=== PATIENT | male | born 1960 | race African-American/Black ===

== ENCOUNTER 2019-04-09 18:16 | Emergency (ER) | payer MEDICAID ==
[~2019-04-09] VITALS: Ht 172.7 cm; Wt 72.7 kg
[~2019-04-09 18:16] MED LIST: CEFD300C3 PO; IBUP-24 PO; LORA10TA7 PO
[2019-04-09 19:34] LABS: BASOPHILS % (AUTO) 0.6 % (0-1); EOSINOPHILS # (AUTO) 0.2 X10'3 (0-0.9); EOSINOPHILS % (AUTO) 4.1 % (0-6); HEMATOCRIT 29.6 % (42.0-52.0); HEMOGLOBIN 10.3 g/dl (14.0-17.9); LYMPHOCYTES % (AUTO) 25.8 % (21-51); MEAN CORPUSCULAR HEMOGLOBIN 34.2 PG (27.0-31.0); MEAN CORPUSCULAR HGB CONC 34.9 g/dL (33.0-36.5); MEAN PLATELET VOLUME 7.8 FL (7.4-10.4); MONOCYTES # (AUTO) 0.5 X10'3 (0-0.9); MONOCYTES % (AUTO) 12.1 % (2-12); NEUTROPHILS # (AUTO) 2.3 X10'3 (1.8-7.7); NEUTROPHILS % (AUTO) 57.4 % (42-75); PLATELET COUNT 91 X10'3 (140-440); RED BLOOD COUNT 3.02 X10'6 (4.70-6.10); RED CELL DISTRIBUTION WIDTH 15.4 % (11.5-14.5); WHITE BLOOD COUNT 3.9 X10'3 (4.5-11.0)
[2019-04-09 19:53] LABS: ALANINE AMINOTRANSFERASE 41 U/L (12-78); ALBUMIN 2.3 G/DL (3.4-5.0); ALBUMIN/GLOBULIN RATIO 0.6 (1.1-1.5); ALKALINE PHOSPHATASE 99 IU/L (46-116); ANION GAP 4 (8-16); ASPARTATE AMINO TRANSFERASE 44 U/L (10-37); BILIRUBIN,TOTAL 2.1 MG/DL (0.1-1.0); BLOOD UREA NITROGEN 7 MG/DL (7-18); BUN/CREATININE RATIO 12.1 (5.4-32.0); CALCIUM 7.8 MG/DL (8.5-10.1); CHLORIDE 107 MMOL/L (99-107); CREATININE 0.58 MG/DL (0.60-1.10); GLUCOSE 91 MG/DL (70-104); POTASSIUM 3.5 MMOL/L (3.5-5.1); SODIUM 140 MMOL/L (135-145); TOTAL PROTEIN 6.1 G/DL (6.4-8.2); eGFR > 90 ML/MIN
[2019-04-09 19:55] LABS: ETHANOL < 0.010 GM/DL (0.0-0.010)
[2019-04-09] MEDS ORDERED: NO HOME MEDS (20:01)
[2019-04-09] MEDS ORDERED: CHLO25CA10 PO (21:19)
[2019-04-09 21:46] VITALS: BP 132/75
== END 2019-04-09 21:47 | disposition home or self-care (01) ==
LOC: ER 18:21
DX: F10.10 Alcohol abuse, uncomplicated (principal); M54.9 Dorsalgia, unspecified; M54.2 Cervicalgia; R11.0 Nausea; M19.90 Unspecified osteoarthritis, unspecified site; G89.29 Other chronic pain; Z79.899 Other long term (current) drug therapy; Z98.890 Other specified postprocedural states; Y90.9 Presence of alcohol in blood, level not specified
CPT/HCPCS: 80053; 80320; 82140; 85025; 99283

== ENCOUNTER 2019-04-23 11:46 | Inpatient (IN) | payer MEDICAID ==
[~2019-04-23] VITALS: Ht 172.7 cm; Wt 76.4 kg
[~2019-04-23 11:46] MED LIST changes: -CEFD300C3 PO; +CHLO25CA10 PO; -IBUP-24 PO; -LORA10TA7 PO; +NO HOME MEDS
[2019-04-23] MEDS ORDERED: normal saline 1000ML IV soln IVB ONE (13:00)
[2019-04-23 13:48] LABS: URINE AMPHETAMINE SCREEN NEGATIVE (Neg); URINE BARBITUATE SCREEN NEGATIVE (Neg); URINE BENZODIAZEPINES SCREEN NEGATIVE (Neg); URINE CANNABINOID SCREEN NEGATIVE (Neg); URINE COCAINE SCREEN NEGATIVE (Neg); URINE METHADONE SCREEN NEGATIVE (Neg); URINE OPIATE SCREEN NEGATIVE (Neg); URINE PHENCYCLIDINE SCREEN NEGATIVE (Neg)
[2019-04-23 13:55] LABS: ALANINE AMINOTRANSFERASE 34 U/L (12-78); ALBUMIN 2.7 G/DL (3.4-5.0); ALKALINE PHOSPHATASE 101 IU/L (46-116); ANION GAP 5 (8-16); ASPARTATE AMINO TRANSFERASE 47 U/L (10-37); BILIRUBIN,TOTAL 3.7 MG/DL (0.1-1.0); BLOOD UREA NITROGEN 5 MG/DL (7-18); BUN/CREATININE RATIO 7.6 (5.4-32.0); CALCIUM 7.9 MG/DL (8.5-10.1); CHLORIDE 95 MMOL/L (99-107); CREATININE 0.66 MG/DL (0.60-1.10); GLUCOSE 104 MG/DL (70-104); POTASSIUM 3.4 MMOL/L (3.5-5.1); SODIUM 124 MMOL/L (135-145); TOTAL CARBON DIOXIDE 24.2 MMOL/L (24-32); eGFR > 90 ML/MIN
[2019-04-23 13:57] LABS: ALBUMIN/GLOBULIN RATIO 0.6 (1.1-1.5); TOTAL PROTEIN 7.1 G/DL (6.4-8.2)
[2019-04-23 14:05] LABS: ETHANOL < 0.010 GM/DL (0.0-0.010)
[2019-04-23 14:28] LABS: BASOPHILS % (AUTO) 0.9 % (0-1); EOSINOPHILS # (AUTO) 0.1 X10'3 (0-0.9); EOSINOPHILS % (AUTO) 1.6 % (0-6); HEMATOCRIT 31.2 % (42.0-52.0); HEMOGLOBIN 11.1 g/dl (14.0-17.9); LYMPHOCYTES # (AUTO) 1.1 X10'3 (1.1-4.8); MEAN CORPUSCULAR HEMOGLOBIN 34.6 PG (27.0-31.0); MEAN CORPUSCULAR HGB CONC 35.6 g/dL (33.0-36.5); MEAN CORPUSCULAR VOLUME 97.3 FL (78-98); MEAN PLATELET VOLUME 8.8 FL (7.4-10.4); MONOCYTES # (AUTO) 0.8 X10'3 (0-0.9); MONOCYTES % (AUTO) 16.8 % (2-12); NEUTROPHILS # (AUTO) 2.9 X10'3 (1.8-7.7); NEUTROPHILS % (AUTO) 58.7 % (42-75); PLATELET COUNT 82 X10'3 (140-440); RED BLOOD COUNT 3.21 X10'6 (4.70-6.10); RED CELL DISTRIBUTION WIDTH 15.2 % (11.5-14.5)
[2019-04-23] MEDS ORDERED: mag hydrox/Alum hydrox/simeth 30ml oral suspension PO PRN (15:35)
[2019-04-23] MEDS ORDERED: haloperidol 5mg tablet PO PRN (15:35)
[2019-04-23] MEDS ORDERED: haloperidol lactate 5mg/ml inj IM PRN (15:35)
[2019-04-23] MEDS ORDERED: HYDROcodone/acetaminophen 5mg/325mg tablet PO PRN (15:35)
[2019-04-23] MEDS ORDERED: metoclopramide 5 mg/ml inj IV PRN (15:35)
[2019-04-23] MEDS ORDERED: LORazepam 2 mg/ml vial IV PRN (15:35)
[2019-04-23] MEDS ORDERED: ondansetron/PF 4mg/2ml inj IV PRN (15:35)
[2019-04-23] MEDS ORDERED: magnesium hydroxide 30ml (MOM) UD suspension PO PRN (15:35)
[2019-04-23] MEDS ORDERED: HYDROcodone/acetaminophen 10/325mg tab PO PRN (15:35)
[2019-04-23] MEDS ORDERED: thiamine 100mg/ml 2ml inj. IV ONE ×2 (15:35→17:05)
[2019-04-23] MEDS ORDERED: acetaminophen 325mg tablet PO PRN ×2 (15:35)
[2019-04-23] MEDS ORDERED: dextrose 50%-water 50ml dispensing syringe IV PRN (15:35)
[2019-04-23 16:48] VITALS: BP 135/75
[2019-04-23] MEDS ORDERED: IBUP-1984 PO (16:57)
--- NOTE | 2019-04-23 17:21 | NUR ---
Thiamine 1535 not given in ER.
[2019-04-23 17:49] LABS: CLARITY,URINE CLEAR (Clear); COLOR,URINE YELLOW (Yellow); GLUCOSE, URINE NEGATIVE (Neg); KETONES,URINE NEGATIVE (Neg); LEUKOCYTE ESTERASE ,URINE NEGATIVE (Neg); NITRITES, URINE NEGATIVE (Neg); OCCULT BLOOD,URINE NEGATIVE (Neg); PROTEIN,URINE NEGATIVE (Neg); UA COLLECTION TYPE VOIDED; UROBILINOGEN,URINE 0.2 E.U/dL (0.2-1.0)
[2019-04-23 18:00] LABS: OSMOLALITY UA 207 MOSM/K (50-1400)
[2019-04-23 18:07] LABS: SODIUM,URINE RANDOM 72 MEQ/L; TOTAL PROTEIN,URINE RANDOM < 6.0 MG/DL
[2019-04-23 18:14] LABS: UA EOSINOPHILS NO EOS /HPF
[2019-04-23] MEDS ORDERED: CHLO25CA10 PO (18:20)
--- NOTE | 2019-04-23 18:32 | NUR ---
Problems reprioritized. Patient report given, questions answered & plan of care reviewed with Candido OLIVEIRA.
[2019-04-23 19:00] VITALS: BP 120/69
[2019-04-23] MEDS ORDERED: magnesium Cl slow-release 64mg tablet PO PRN (19:00)
[2019-04-23] MEDS ORDERED: magnesium 2GM in 50ml NS 50 ML IV PRN (19:00)
[2019-04-23] MEDS ORDERED: potassium Cl 20 mEq SR tablet PO PRN (19:00)
[2019-04-23] MEDS ORDERED: potassium CL 10mEq/100ml bag 100 ML IV PRN (19:00)
[2019-04-23] MEDS ORDERED: magnesium 4gm in 100ml NS 100 ML IV PRN (19:00)
--- NOTE | 2019-04-23 19:00 | NUR ---
Patient in room ORTHO 4021. I have received report from Tom OLIVEIRA and had the opportunity to ask questions and assume patient care.
[2019-04-23 19:13] LABS: MAGNESIUM 1.7 MG/DL (1.5-2.4)
[2019-04-23] MEDS: potassium Cl 20 mEq SR tablet PO PRN ×2 (19:28→23:55)
[2019-04-23] MEDS ORDERED: temazepam 15mg capsule PO PRN (21:00)
--- NOTE | 2019-04-23 21:17 | NUR ---
Patient's sister, Jane Freedman came in to see her brother and informed staff that she has been trying to keep an eye on her brother 13/10 since sometime in March. She said he has not had any alcohol since 04/02/2019 and that she has been monitoring him. She verbalized concerns about his ability to care for himself; says that he doesn't know how to process : how to dress,bathe and feed self. That he gets food mixed up with other stuff and that he is throwing things away and remodeling her house by destroying things. That he is incontinent of urine and peeing in all the garbage cans. She has set up an appointment for this Thursday ,for him at the [facility] office with an Md. She wants him to get help and feels that he needs to be placed in a facility where he can be cared for. I instructed her that DCP will evaluate the situation and SS has been ordered and hopefully they can make some suggestions and aide her in finding a safe place for her brother. Her number is [phone] but it is a landline. Her 's number is a cell number [phone] Bharathi Freedman.
[2019-04-24 06:00] VITALS: BP 107/64
[2019-04-24 06:10] LABS: BASOPHILS # (AUTO) 0.1 X10'3 (0-0.2); EOSINOPHILS # (AUTO) 0.1 X10'3 (0-0.9); EOSINOPHILS % (AUTO) 1.3 % (0-6); HEMATOCRIT 29.2 % (42.0-52.0); HEMOGLOBIN 10.3 g/dl (14.0-17.9); LYMPHOCYTES # (AUTO) 1.4 X10'3 (1.1-4.8); LYMPHOCYTES % (AUTO) 25.8 % (21-51); MEAN CORPUSCULAR HEMOGLOBIN 34.2 PG (27.0-31.0); MEAN CORPUSCULAR HGB CONC 35.2 g/dL (33.0-36.5); MEAN CORPUSCULAR VOLUME 97.3 FL (78-98); MONOCYTES # (AUTO) 0.7 X10'3 (0-0.9); MONOCYTES % (AUTO) 12.6 % (2-12); NEUTROPHILS # (AUTO) 3.2 X10'3 (1.8-7.7); NEUTROPHILS % (AUTO) 59.3 % (42-75); PLATELET COUNT 73 X10'3 (140-440); RED CELL DISTRIBUTION WIDTH 15.4 % (11.5-14.5); WHITE BLOOD COUNT 5.4 X10'3 (4.5-11.0)
[2019-04-24 06:18] LABS: PARTIAL THROMBOPLASTIN TIME 33 SECONDS (22-32)
[2019-04-24 06:21] LABS: ALANINE AMINOTRANSFERASE 30 U/L (12-78); ALBUMIN 2.4 G/DL (3.4-5.0); ALKALINE PHOSPHATASE 86 IU/L (46-116); ANION GAP 5 (8-16); ASPARTATE AMINO TRANSFERASE 43 U/L (10-37); BILIRUBIN,TOTAL 3.9 MG/DL (0.1-1.0); BLOOD UREA NITROGEN 6 MG/DL (7-18); BUN/CREATININE RATIO 9.4 (5.4-32.0); CALCIUM 8.1 MG/DL (8.5-10.1); CHLORIDE 100 MMOL/L (99-107); CREATININE 0.64 MG/DL (0.60-1.10); GLUCOSE 91 MG/DL (70-104); MAGNESIUM 1.8 MG/DL (1.5-2.4); POTASSIUM 4.2 MMOL/L (3.5-5.1); SODIUM 127 MMOL/L (135-145); TOTAL CARBON DIOXIDE 22.4 MMOL/L (24-32); eGFR > 90 ML/MIN
[2019-04-24 06:22] LABS: ALBUMIN/GLOBULIN RATIO 0.6 (1.1-1.5); TOTAL PROTEIN 6.5 G/DL (6.4-8.2)
[2019-04-24] MEDS: enoxaparin 40mg/0.4ml syringe SQ SCH (08:00)
--- NOTE | 2019-04-24 08:30 | NUR ---
Pt appears confused and mumbling words most of the time. Pt able to feed self and ambulates to the toilet using cane with one person stand by assist. Pt alert to person and time. Pt on 1500 ml fluid restriction at this time. Returned to pts room after completing breakfast at 0840, and emptied pts urinal. Returned urinal to bedside table, and pt picked it up and spit on top of urinal lid. Advised pt he spit on the urinal lid, and he responded "I know I did." Attempted to reorient pt to room and gave him a cup to spit it while at bedside.
[2019-04-24] MEDS: thiamine 100mg tablet PO SCH (09:07)
[2019-04-24] MEDS: folic acid 1mg tablet PO SCH (09:07)
[2019-04-24] MEDS: multivitamins, therapeutics tablet PO SCH (09:07)
[2019-04-24 10:00] VITALS: BP 111/59
--- NOTE | 2019-04-24 10:30 | NUR ---
Pts sister (whom pt has been staying with) called the Nurse's Station and requested to speak with the nurse. I spoke with pt during brief moment of approximately one hour of clarity, and asked him if I could speak to his sister regarding his current condition. Pt informed that he would speak directly to his sister. Gave pts phone number to call pt and advised I can assist him when he is ready to call her. Rechecked on pt at 1230, and pt stated he was not ready to call her at this time. Will continue to monitor.
--- NOTE | 2019-04-24 10:45 | NUR ---
Pt sitting up in chair alongside bed. Pt urinated in water cup at this time. Attempted to reorient pt to use the urinal when he needed to urinate. Pt responded "I know what's going on." Pt slightly agitated at this time.
[2019-04-24] MEDS: fludrocortisone acetate 0.1mg tablet PO SCH (14:36)
[2019-04-24] MEDS: LORazepam 1 MG tablet PO PRN ×2 (14:37→21:04)
--- NOTE | 2019-04-24 14:40 | NUR ---
Pt came out to Nurse's station dressed in street clothes and asked where he can "buy some candy." Assisted pt back to his room, and asked him why he was dressed in his street clothes. Pt stated "You told me I'm going home." Informed pt that the would like him to stay here a few days so that we can monitor his lab tests. Pt stated "That's fine but I need to go get candy to put in with my banana in this cup (pt was holding his water pitcher that was approximately 1/2 full of ice water. Pt had a plastic fork in the water pitcher. Pt kept insisting it was a banana in his water. Showed pt the fork that was in the cup. Pt started to yell that he was leaving to get candy. I asked the pt if he could put on his gown, and assisted him to the bathroom. Pt had removed telemetry unit, and had pulled all of the sheets off of his bed and thrown them on the floor because "I was leaving," he stated. Pts frustration continued to increase. After telemetry reapplied and pt put on a gown gave pt Ativan 2 mg po at 1437. Pt continued to pull off and make his bed over and over, then crawled into bed and fell asleep. Will continue to monitor closely.
[2019-04-24 18:00] VITALS: BP 108/63
[2019-04-24 21:31] VITALS: BP 96/59
[2019-04-25] MEDS: LORazepam 1 MG tablet PO PRN (02:46)
[2019-04-25 05:02] LABS: PARTIAL THROMBOPLASTIN TIME 31 SECONDS (22-32)
[2019-04-25 05:09] LABS: ALANINE AMINOTRANSFERASE 33 U/L (12-78); ALBUMIN 2.5 G/DL (3.4-5.0); ALBUMIN/GLOBULIN RATIO 0.6 (1.1-1.5); ALKALINE PHOSPHATASE 90 IU/L (46-116); ANION GAP 6 (8-16); ASPARTATE AMINO TRANSFERASE 39 U/L (10-37); BILIRUBIN,TOTAL 3.1 MG/DL (0.1-1.0); BLOOD UREA NITROGEN 10 MG/DL (7-18); BUN/CREATININE RATIO 15.2 (5.4-32.0); CHLORIDE 102 MMOL/L (99-107); CREATININE 0.66 MG/DL (0.60-1.10); GLUCOSE 97 MG/DL (70-104); MAGNESIUM 1.7 MG/DL (1.5-2.4); POTASSIUM 3.9 MMOL/L (3.5-5.1); SODIUM 133 MMOL/L (135-145); TOTAL CARBON DIOXIDE 24.6 MMOL/L (24-32); TOTAL PROTEIN 6.9 G/DL (6.4-8.2); eGFR > 90 ML/MIN
[2019-04-25 06:00] VITALS: BP 128/66
[2019-04-25 06:14] LABS: BASOPHILS % (AUTO) 0.7 % (0-1); EOSINOPHILS % (AUTO) 0.9 % (0-6); HEMATOCRIT 30.5 % (42.0-52.0); HEMOGLOBIN 10.9 g/dl (14.0-17.9); LYMPHOCYTES % (AUTO) 19.7 % (21-51); MEAN CORPUSCULAR HEMOGLOBIN 34.7 PG (27.0-31.0); MEAN CORPUSCULAR HGB CONC 35.7 g/dL (33.0-36.5); MEAN CORPUSCULAR VOLUME 97.2 FL (78-98); MEAN PLATELET VOLUME 8.6 FL (7.4-10.4); MONOCYTES # (AUTO) 0.6 X10'3 (0-0.9); MONOCYTES % (AUTO) 12.7 % (2-12); NEUTROPHILS # (AUTO) 3.3 X10'3 (1.8-7.7); PLATELET COUNT 78 X10'3 (140-440); RED BLOOD COUNT 3.14 X10'6 (4.70-6.10); RED CELL DISTRIBUTION WIDTH 15.5 % (11.5-14.5)
[2019-04-25] MEDS: enoxaparin 40mg/0.4ml syringe SQ SCH (08:00)
[2019-04-25] MEDS: folic acid 1mg tablet PO SCH (09:53)
[2019-04-25] MEDS: multivitamins, therapeutics tablet PO SCH (09:53)
[2019-04-25] MEDS: thiamine 100mg tablet PO SCH (09:53)
[2019-04-25] MEDS: fludrocortisone acetate 0.1mg tablet PO SCH (09:53)
[2019-04-25 10:00] VITALS: BP 128/65
[2019-04-25] MEDS ORDERED: LORazepam 2 mg/ml vial IV ONE (10:20)
--- NOTE | 2019-04-25 12:06 | NUR ---
when co-singing ativan, vial got disposed of in sharps container, therefore unable to scan med, checked med prior to admin, continue to monitor
[2019-04-25 18:00] VITALS: BP 126/79
[2019-04-26 01:02] VITALS: BP 112/59
[2019-04-26 06:00] VITALS: BP 153/68
[2019-04-26 06:22] LABS: PARTIAL THROMBOPLASTIN TIME 27 SECONDS (22-32)
[2019-04-26 06:28] LABS: ALANINE AMINOTRANSFERASE 28 U/L (12-78); ALBUMIN 2.4 G/DL (3.4-5.0); ALKALINE PHOSPHATASE 76 IU/L (46-116); ANION GAP 6 (8-16); ASPARTATE AMINO TRANSFERASE 37 U/L (10-37); BILIRUBIN,TOTAL 3.9 MG/DL (0.1-1.0); BLOOD UREA NITROGEN 11 MG/DL (7-18); BUN/CREATININE RATIO 17.2 (5.4-32.0); CALCIUM 8.4 MG/DL (8.5-10.1); CHLORIDE 104 MMOL/L (99-107); CREATININE 0.64 MG/DL (0.60-1.10); GLUCOSE 86 MG/DL (70-104); MAGNESIUM 1.7 MG/DL (1.5-2.4); SODIUM 136 MMOL/L (135-145); TOTAL CARBON DIOXIDE 26.1 MMOL/L (24-32); eGFR > 90 ML/MIN
[2019-04-26 06:30] LABS: ALBUMIN/GLOBULIN RATIO 0.6 (1.1-1.5); POTASSIUM 3.7 MMOL/L (3.5-5.1); TOTAL PROTEIN 6.7 G/DL (6.4-8.2)
[2019-04-26 06:32] VITALS: BP 153/68
[2019-04-26] MEDS: enoxaparin 40mg/0.4ml syringe SQ SCH (08:00)
[2019-04-26 08:57] LABS: BASOPHILS # (AUTO) 0.1 X10'3 (0-0.2); HEMOGLOBIN 11.7 g/dl (14.0-17.9)
[2019-04-26 08:59] LABS: BASOPHILS % (AUTO) 1.1 % (0-1); EOSINOPHILS % (AUTO) 0.6 % (0-6); HEMATOCRIT 32.9 % (42.0-52.0); LYMPHOCYTES % (AUTO) 16.9 % (21-51); MEAN CORPUSCULAR HEMOGLOBIN 34.6 PG (27.0-31.0); MEAN CORPUSCULAR HGB CONC 35.6 g/dL (33.0-36.5); MEAN CORPUSCULAR VOLUME 97.1 FL (78-98); MONOCYTES # (AUTO) 0.6 X10'3 (0-0.9); MONOCYTES % (AUTO) 10.3 % (2-12); NEUTROPHILS # (AUTO) 4.3 X10'3 (1.8-7.7); NEUTROPHILS % (AUTO) 71.1 % (42-75); RED BLOOD COUNT 3.39 X10'6 (4.70-6.10); WHITE BLOOD COUNT 6.1 X10'3 (4.5-11.0)
[2019-04-26] MEDS: thiamine 100mg tablet PO SCH (09:09)
[2019-04-26] MEDS: multivitamins, therapeutics tablet PO SCH (09:09)
[2019-04-26] MEDS: fludrocortisone acetate 0.1mg tablet PO SCH (09:09)
[2019-04-26] MEDS: folic acid 1mg tablet PO SCH (09:09)
[2019-04-26 09:43] LABS: PLATELET COUNT 83 X10'3 (140-440)
[2019-04-26 09:45] LABS: BURR CELLS 1+; PLATELET ESTIMATE DECREASED
[2019-04-26 10:00] VITALS: BP 116/66
[2019-04-26] MEDS ORDERED: folic acid tablet PO (12:41)
[2019-04-26] MEDS ORDERED: FLO0.1T PO (12:41)
[2019-04-26] MEDS ORDERED: MULT-1179 PO (12:41)
[2019-04-26] MEDS ORDERED: thiamine tablet PO (12:41)
[2019-04-26] MEDS ORDERED: gadobutrol 10mmol/10ml inj. IV ONE (13:30)
--- NOTE | 2019-04-26 13:30 | NUR ---
Received Discharge orders from Dr. Osborn. TC placed to pts sister (Jane Freedman [phone]) and informed her that pt has been discharged from [facility]. Asked pts sister if she knew what pharmacy she would like discharge prescriptions called to. Jane informed to call prescriptions to [facility]. Jane was then informed that the patient could be picked up at any time and we will have him ready. Jane then said "I won't be here tonight until the same time as when you had me kicked out last night (Approx 1815). Nicki asked "Does [place] [facility] a [facility]?" Informed pt that these were two different pharmacy's and [facility] Pts daughter repeated the same information over and question was answered again in the same manner. Pts sister stated I could call the prescription to [facility]. Jane then stated "I need to know about all of the medications that the dr ordered." I listed off medications ordered by Dr. Osborn, and informed the sister about indications for Fiorinef. Through my conversation, the pts sister hung up the phone while I was informing her what each medication was prescribed for. Notified Security Desk in the Main Lobby that the patient has been discharged, and his sister Jane Freedman would be picking up patient later today, (approx 1800). Asked Security to hold pt down in the main lobby and not allow her to come up to Ortho/Neuro to the patients room d/t events that occurred last night, and to call Ext [phone] and we will bring the patient down to the lobby and assist the patient to the car. Received 2nd phone call from pts sister, Jane Freedman, who informed me that she would like her brother to stay another night as she wants to loan her car to her children to drive and would not have a vehicle to pick remover her brother. Informed pts sister that the patient has been discharged, his IV's and heart monitor have been removed, and she must pick remover the patient this evening. Informed patient's sister that we will need to see her here to pick remover her brother no later than 6:00 pm tonight. Sent message to Dr. Osborn.
--- NOTE | 2019-04-26 17:00 | NUR ---
called magdaleno to let her know that pt is medically stable for discharge, magdaleno is pts sister and is the caregiver of pt, magdaleno said that she and her is unable to take care of pt because pt is 'too difficult to deal with' even though pt reported being his 'caregiver since march' magdaleno said that the 'doctor has not explained to her about her brother's (pt) medical condition' and because of this she feels that 'he should not be discharged' nursing staff said that met w/magdaleno yesterday to explain and answer all of her questions magdaleno said that if we were to placed pt in cab to go home that she would 'not open her door to pt' magdaleno said that if we(the hospital) discharges pt that she is 'going to take pt to ER and drop him off' magdaleno confirmed pt appointment tomorrow w/dane [facility] to hold pt til dr. lutz but then told me that the appointment is not a sure thing??? nursing staff told me that earlier in the day that magdaleno was able to take brother home at 1800 today because of this appointment davion/dane tomorrow pt is able to ambulate, feed self, bath self and toilet self independently hospitalist aware of situation and maintains that pt has been medically discharged
== END 2019-04-26 18:05 | disposition home or self-care (01) | DRG 42 ==
LOC: ER 11:46 → ED HOLD 15:31 → ORTHO 4S 16:00
PROVIDERS: ADMIT Family Medicine; ATTEND Family Medicine
DX: G31.2 Degeneration of nervous system due to alcohol (principal); E44.0 Moderate protein-calorie malnutrition; E87.1 Hypo-osmolality and hyponatremia; K70.30 Alcoholic cirrhosis of liver without ascites; E83.51 Hypocalcemia; F10.20 Alcohol dependence, uncomplicated; G93.0 Cerebral cysts; D64.9 Anemia, unspecified; E87.6 Hypokalemia; F17.200 Nicotine dependence, unspecified, uncomplicated; G89.29 Other chronic pain; M19.90 Unspecified osteoarthritis, unspecified site; M54.9 Dorsalgia, unspecified; Z68.25 Body mass index [BMI] 25.0-25.9, adult
CPT/HCPCS: 36415; 70450; 70553; 73610; 80053; 80305; 80320; 81003; 82140; 82570; 82948; 83735; 83935; 84133; 84156; 84300; 84443; 85025; 85610; 85730; 87081; 87207; 93005; 96360; 97116; 97161; 97530; 99285; A9585; G0378; J2060; J3411; J7030

== ENCOUNTER 2019-05-01 19:25 | Emergency (ER) | payer MEDICAID ==
[~2019-05-01] VITALS: Ht 172.7 cm; Wt 78.2 kg
[~2019-05-01 19:25] MED LIST changes: +FLO0.1T PO; +IBUP-1984 PO; +MULT-1179 PO; -NO HOME MEDS; +folic acid tablet PO; +thiamine tablet PO
[2019-05-01 19:31] VITALS: BP 125/74
[2019-05-01] MEDS ORDERED: mupirocin 2% ointment 22GM TP ONE (20:50)
[2019-05-01] MEDS ORDERED: ketorolac tromethamine 15mg/ml inj. IM ONE (21:50)
[2019-05-01] MEDS ORDERED: IBUP-1984 PO (21:54)
== END 2019-05-01 22:21 | disposition home or self-care (01) ==
LOC: ER 19:26
DX: S01.511A Laceration without foreign body of lip, initial encounter (principal); G89.29 Other chronic pain; M54.2 Cervicalgia; M54.9 Dorsalgia, unspecified; F10.10 Alcohol abuse, uncomplicated; M19.90 Unspecified osteoarthritis, unspecified site; W01.0XXA Fall on same level from slipping, tripping and stumbling without subsequent striking against object, initial encounter; Y93.89 Activity, other specified; Y92.89 Other specified places as the place of occurrence of the external cause; Y99.8 Other external cause status
CPT/HCPCS: 70450; 70486; 72125; 96372; 99284; J1885

== ENCOUNTER 2019-05-02 21:29 | Emergency (ER) | payer MEDICAID ==
[~2019-05-02] VITALS: Ht 172.7 cm; Wt 73.6 kg
--- NOTE | 2019-05-02 22:28 | NUR ---
PATIENT'S SPEECH IS SLURRED, HAVING DIFFICULTY STAYING AWAKE. PATIENT ADMITS TO DRINKING A "40 AND A 32" TODAY. WAS SEEN AT THIS ED AND [facility] TODAY
[2019-05-02 22:54] LABS: ALANINE AMINOTRANSFERASE 30 U/L (12-78); ALBUMIN 2.5 G/DL (3.4-5.0); ALBUMIN/GLOBULIN RATIO 0.6 (1.1-1.5); ALKALINE PHOSPHATASE 98 IU/L (46-116); ANION GAP 4 (8-16); ASPARTATE AMINO TRANSFERASE 42 U/L (10-37); BILIRUBIN,TOTAL 2.7 MG/DL (0.1-1.0); BLOOD UREA NITROGEN 11 MG/DL (7-18); BUN/CREATININE RATIO 16.7 (5.4-32.0); CALCIUM 8.3 MG/DL (8.5-10.1); CHLORIDE 98 MMOL/L (99-107); CREATININE 0.66 MG/DL (0.60-1.10); GLUCOSE 109 MG/DL (70-104); POTASSIUM 3.6 MMOL/L (3.5-5.1); SODIUM 129 MMOL/L (135-145); TOTAL CARBON DIOXIDE 27.2 MMOL/L (24-32); TOTAL PROTEIN 6.4 G/DL (6.4-8.2); eGFR > 90 ML/MIN
[2019-05-02 23:08] LABS: BASOPHILS % (AUTO) 0.5 % (0-1); EOSINOPHILS # (AUTO) 0.1 X10'3 (0-0.9); EOSINOPHILS % (AUTO) 1.1 % (0-6); HEMATOCRIT 27.5 % (42.0-52.0); HEMOGLOBIN 9.7 g/dl (14.0-17.9); LYMPHOCYTES # (AUTO) 0.9 X10'3 (1.1-4.8); LYMPHOCYTES % (AUTO) 18.9 % (21-51); MEAN CORPUSCULAR HEMOGLOBIN 33.7 PG (27.0-31.0); MEAN CORPUSCULAR HGB CONC 35.2 g/dL (33.0-36.5); MEAN CORPUSCULAR VOLUME 95.6 FL (78-98); MEAN PLATELET VOLUME 8.5 FL (7.4-10.4); MONOCYTES # (AUTO) 0.8 X10'3 (0-0.9); NEUTROPHILS % (AUTO) 63.5 % (42-75); PLATELET COUNT 68 X10'3 (140-440); RED BLOOD COUNT 2.88 X10'6 (4.70-6.10); RED CELL DISTRIBUTION WIDTH 14.8 % (11.5-14.5); WHITE BLOOD COUNT 4.8 X10'3 (4.5-11.0)
[2019-05-02 23:40] LABS: TOTAL CELLS COUNTED 100
[2019-05-02 23:42] LABS: PLATELET ESTIMATE DECREASED
[2019-05-03 00:15] VITALS: BP 153/67
== END 2019-05-03 00:29 | disposition home or self-care (01) ==
LOC: ER 21:30
DX: R07.89 Other chest pain (principal); F10.10 Alcohol abuse, uncomplicated; R06.00 Dyspnea, unspecified; M19.90 Unspecified osteoarthritis, unspecified site; G89.29 Other chronic pain; Z98.890 Other specified postprocedural states; Z79.899 Other long term (current) drug therapy; Y90.9 Presence of alcohol in blood, level not specified
CPT/HCPCS: 36415; 71045; 80053; 84484; 85025; 93005; 99285

== ENCOUNTER 2019-05-03 20:09 | Emergency (ER) | payer MEDICAID ==
[~2019-05-03] VITALS: Ht 172.7 cm; Wt 75.0 kg
[2019-05-03 21:52] LABS: BASOPHILS % (AUTO) 0.6 % (0-1); EOSINOPHILS # (AUTO) 0.1 X10'3 (0-0.9); EOSINOPHILS % (AUTO) 1.5 % (0-6); HEMATOCRIT 27.4 % (42.0-52.0); HEMOGLOBIN 9.8 g/dl (14.0-17.9); LYMPHOCYTES # (AUTO) 0.9 X10'3 (1.1-4.8); LYMPHOCYTES % (AUTO) 19.9 % (21-51); MEAN CORPUSCULAR HEMOGLOBIN 34.6 PG (27.0-31.0); MEAN CORPUSCULAR HGB CONC 35.6 g/dL (33.0-36.5); MEAN PLATELET VOLUME 8.6 FL (7.4-10.4); MONOCYTES # (AUTO) 0.9 X10'3 (0-0.9); MONOCYTES % (AUTO) 18.1 % (2-12); NEUTROPHILS # (AUTO) 2.8 X10'3 (1.8-7.7); NEUTROPHILS % (AUTO) 59.9 % (42-75); PLATELET COUNT 86 X10'3 (140-440); RED BLOOD COUNT 2.83 X10'6 (4.70-6.10); RED CELL DISTRIBUTION WIDTH 15.1 % (11.5-14.5); WHITE BLOOD COUNT 4.7 X10'3 (4.5-11.0)
[2019-05-03 22:07] LABS: ALANINE AMINOTRANSFERASE 32 U/L (12-78); ALBUMIN 2.4 G/DL (3.4-5.0); ALBUMIN/GLOBULIN RATIO 0.7 (1.1-1.5); ALKALINE PHOSPHATASE 82 IU/L (46-116); ANION GAP 6 (8-16); ASPARTATE AMINO TRANSFERASE 49 U/L (10-37); BILIRUBIN,TOTAL 2.1 MG/DL (0.1-1.0); BLOOD UREA NITROGEN 9 MG/DL (7-18); BUN/CREATININE RATIO 12.9 (5.4-32.0); CALCIUM 7.7 MG/DL (8.5-10.1); CHLORIDE 98 MMOL/L (99-107); GLUCOSE 103 MG/DL (70-104); POTASSIUM 3.3 MMOL/L (3.5-5.1); SODIUM 129 MMOL/L (135-145); TOTAL CARBON DIOXIDE 25.3 MMOL/L (24-32); eGFR > 90 ML/MIN
[2019-05-03 22:30] VITALS: BP 106/56
[2019-05-03] MEDS ORDERED: normal saline 1000ML IV soln IVB ONE (22:50)
[2019-05-03 22:57] LABS: TOTAL CELLS COUNTED 100
[2019-05-03 22:58] LABS: PLATELET ESTIMATE DECREASED
[2019-05-03 22:59] LABS: LARGE PLATELETS FEW
== END 2019-05-04 00:26 | disposition home or self-care (01) ==
LOC: ER 20:10
DX: E87.6 Hypokalemia (principal); E83.51 Hypocalcemia; M19.90 Unspecified osteoarthritis, unspecified site; G89.29 Other chronic pain; Z98.890 Other specified postprocedural states; Z79.899 Other long term (current) drug therapy
CPT/HCPCS: 36415; 71045; 80053; 84484; 85025; 93005; 99285; J7030

== ENCOUNTER 2019-05-06 17:22 | Emergency (ER) | payer MEDICAID ==
[~2019-05-06] VITALS: Ht 172.7 cm; Wt 75.0 kg
--- NOTE | 2019-05-06 18:09 | NUR ---
Pt has no change in condition. Pt was eating crackers and gatorade that he had with him upon arrival to the ED. Pt was given 2liters of NSS IV bolus from Dakotah Kerr prior to arrival.
[2019-05-06 19:31] LABS: BASOPHILS % (AUTO) 0.7 % (0-1); EOSINOPHILS # (AUTO) 0.1 X10'3 (0-0.9); EOSINOPHILS % (AUTO) 1.8 % (0-6); HEMATOCRIT 27.5 % (42.0-52.0); HEMOGLOBIN 9.8 g/dl (14.0-17.9); LYMPHOCYTES # (AUTO) 0.9 X10'3 (1.1-4.8); LYMPHOCYTES % (AUTO) 21.5 % (21-51); MEAN CORPUSCULAR HEMOGLOBIN 35.4 PG (27.0-31.0); MEAN CORPUSCULAR HGB CONC 35.7 g/dL (33.0-36.5); MEAN CORPUSCULAR VOLUME 99.1 FL (78-98); MEAN PLATELET VOLUME 8.1 FL (7.4-10.4); MONOCYTES # (AUTO) 0.8 X10'3 (0-0.9); MONOCYTES % (AUTO) 20.1 % (2-12); NEUTROPHILS # (AUTO) 2.3 X10'3 (1.8-7.7); NEUTROPHILS % (AUTO) 55.9 % (42-75); PLATELET COUNT 67 X10'3 (140-440); RED BLOOD COUNT 2.77 X10'6 (4.70-6.10); RED CELL DISTRIBUTION WIDTH 15.5 % (11.5-14.5); WHITE BLOOD COUNT 4.1 X10'3 (4.5-11.0)
[2019-05-06 19:43] LABS: ALANINE AMINOTRANSFERASE 45 U/L (12-78); ALBUMIN 2.3 G/DL (3.4-5.0); ALBUMIN/GLOBULIN RATIO 0.6 (1.1-1.5); ALKALINE PHOSPHATASE 90 IU/L (46-116); ANION GAP 2 (8-16); ASPARTATE AMINO TRANSFERASE 55 U/L (10-37); BLOOD UREA NITROGEN 4 MG/DL (7-18); BUN/CREATININE RATIO 6.8 (5.4-32.0); CALCIUM 7.4 MG/DL (8.5-10.1); CHLORIDE 104 MMOL/L (99-107); CREATININE 0.59 MG/DL (0.60-1.10); ETHANOL < 0.010 GM/DL (0.0-0.010); GLUCOSE 125 MG/DL (70-104); SODIUM 133 MMOL/L (135-145); TOTAL CARBON DIOXIDE 26.8 MMOL/L (24-32); eGFR > 90 ML/MIN
[2019-05-06 19:51] LABS: POTASSIUM 2.8 MMOL/L (3.5-5.1)
[2019-05-06] MEDS ORDERED: POTA20TA19 PO (19:53)
[2019-05-06] MEDS ORDERED: magnesium oxide 400mg tablet PO ONE (19:55)
[2019-05-06] MEDS ORDERED: potassium Cl 20 mEq SR tablet PO ONE (19:55)
--- NOTE | 2019-05-06 20:34 | NUR ---
PT gait tested and ambulated with slow but steady gait. Pt is preparing for discharge to the destination of his choice.
--- NOTE | 2019-05-06 20:35 | NUR ---
Patient cleared by Dr. Le for discharge. [facility] called to see if the patient was allowed to return. Spoke to Neeraj who states the patient is not welcome back at this time but should follow up with administration in the morning. Patient has food, clothing, and his sister was contacted for a ride. His sister became agressive over the phone before his [id number] agreed to come pick him up to keep him off the street. IV was disconnected and discharge instructions provided. While removing his IV his noiwixb-zf-jsa called back to say that his did not want him back at the house. She continued to scream profanities over the top of her so loudly that most of the conversation I wasn't able to hear him, but it was clear that he was not coming to get the patient. Spoke to the patient again that he was not welcome at his sister's house. He requests to be given a taxi to [place] where his camp is. Patient gait tested by Gypsy who was his RN and he is reportedly able to ambulate without assistance. Local [employer] company will be called to get him safely to his camp.
[2019-05-06 20:36] VITALS: BP 124/69
[2019-05-06 20:47] LABS: ANISOCYTOSIS 1+; PLATELET ESTIMATE DECREASED; TOTAL CELLS COUNTED 100
== END 2019-05-06 20:37 | disposition home or self-care (01) ==
LOC: ER 17:22
DX: E87.6 Hypokalemia (principal); R19.7 Diarrhea, unspecified; M19.90 Unspecified osteoarthritis, unspecified site; G89.29 Other chronic pain; F10.10 Alcohol abuse, uncomplicated; Z98.890 Other specified postprocedural states; Z79.899 Other long term (current) drug therapy; Y90.9 Presence of alcohol in blood, level not specified
CPT/HCPCS: 36415; 80053; 80320; 85025; 99284

== ENCOUNTER 2019-05-23 10:58 | Emergency (ER) | payer MEDICAID ==
[~2019-05-23] VITALS: Ht 172.7 cm; Wt 93.6 kg
[~2019-05-23 10:58] MED LIST changes: +NO HOME MEDS
--- NOTE | 2019-05-23 11:31 | NUR ---
VO Dr. Choudhury for EKG, CBC, CMP, W/ troponin.
[2019-05-23 12:08] LABS: ALANINE AMINOTRANSFERASE 30 U/L (12-78); ALBUMIN 2.4 G/DL (3.4-5.0); ALBUMIN/GLOBULIN RATIO 0.6 (1.1-1.5); ALKALINE PHOSPHATASE 120 IU/L (46-116); ANION GAP 5 (8-16); ASPARTATE AMINO TRANSFERASE 42 U/L (10-37); BILIRUBIN,TOTAL 2.1 MG/DL (0.1-1.0); BLOOD UREA NITROGEN 7 MG/DL (7-18); BUN/CREATININE RATIO 10.4 (5.4-32.0); CALCIUM 8.1 MG/DL (8.5-10.1); CHLORIDE 104 MMOL/L (99-107); CREATININE 0.67 MG/DL (0.60-1.10); GLUCOSE 90 MG/DL (70-104); POTASSIUM 3.5 MMOL/L (3.5-5.1); SODIUM 136 MMOL/L (135-145); TOTAL CARBON DIOXIDE 26.6 MMOL/L (24-32); TOTAL PROTEIN 6.6 G/DL (6.4-8.2); eGFR > 90 ML/MIN
[2019-05-23 12:11] LABS: BASOPHILS % (AUTO) 0.9 % (0-1); EOSINOPHILS # (AUTO) 0.1 X10'3 (0-0.9); HEMATOCRIT 28.7 % (42.0-52.0); LYMPHOCYTES % (AUTO) 21.5 % (21-51); MEAN CORPUSCULAR HEMOGLOBIN 34.1 PG (27.0-31.0); MEAN CORPUSCULAR HGB CONC 34.8 g/dL (33.0-36.5); MONOCYTES # (AUTO) 0.8 X10'3 (0-0.9); MONOCYTES % (AUTO) 17.3 % (2-12); NEUTROPHILS # (AUTO) 2.7 X10'3 (1.8-7.7); NEUTROPHILS % (AUTO) 58.3 % (42-75); PLATELET COUNT 91 X10'3 (140-440); RED BLOOD COUNT 2.93 X10'6 (4.70-6.10); RED CELL DISTRIBUTION WIDTH 15.2 % (11.5-14.5); TROPONIN I 0.04 NG/ML (0.0-0.05); WHITE BLOOD COUNT 4.6 X10'3 (4.5-11.0)
[2019-05-23] MEDS ORDERED: ketorolac tromethamine 15mg/ml inj. IV ONE (12:30)
[2019-05-23] MEDS ORDERED: normal saline 1000ML IV soln IVB ONE (12:30)
[2019-05-23 13:06] LABS: ETHANOL < 0.010 GM/DL (0.0-0.010)
[2019-05-23] MEDS ORDERED: ondansetron 4mg rapidly disintigrating tab PO ONE (13:35)
[2019-05-23] MEDS ORDERED: ketorolac tromethamine 15mg/ml inj. IM ONE (13:35)
[2019-05-23 13:38] VITALS: BP 100/52
[2019-05-23 13:46] LABS: CLARITY,URINE CLEAR (Clear); COLOR,URINE YELLOW (Yellow); GLUCOSE, URINE NEGATIVE (Neg); KETONES,URINE NEGATIVE (Neg); LEUKOCYTE ESTERASE ,URINE NEGATIVE (Neg); NITRITES, URINE NEGATIVE (Neg); OCCULT BLOOD,URINE NEGATIVE (Neg); PROTEIN,URINE NEGATIVE (Neg)
[2019-05-23] MEDS ORDERED: ONDA4TAB6 PO (13:46)
[2019-05-23 13:50] LABS: UA COLLECTION TYPE CLN CATCH MIDSTREAM
[2019-05-23 13:54] LABS: URINE AMPHETAMINE SCREEN NEGATIVE (Neg); URINE BARBITUATE SCREEN NEGATIVE (Neg); URINE BENZODIAZEPINES SCREEN NEGATIVE (Neg); URINE CANNABINOID SCREEN NEGATIVE (Neg); URINE COCAINE SCREEN NEGATIVE (Neg); URINE METHADONE SCREEN NEGATIVE (Neg); URINE OPIATE SCREEN NEGATIVE (Neg); URINE PHENCYCLIDINE SCREEN NEGATIVE (Neg)
== END 2019-05-23 14:07 | disposition home or self-care (01) ==
LOC: ER 10:59
DX: K74.60 Unspecified cirrhosis of liver (principal); G89.29 Other chronic pain; R42 Dizziness and giddiness; M54.2 Cervicalgia; K92.0 Hematemesis; M19.90 Unspecified osteoarthritis, unspecified site; F17.200 Nicotine dependence, unspecified, uncomplicated; Z98.890 Other specified postprocedural states; Z79.899 Other long term (current) drug therapy
CPT/HCPCS: 36415; 71045; 74176; 80053; 80305; 80320; 81003; 83880; 84484; 85025; 93005; 96372; 99285; J1885

== ENCOUNTER 2019-05-31 12:13 | Emergency (ER) | payer MEDICAID ==
[~2019-05-31] VITALS: Ht 172.7 cm; Wt 75.0 kg
[~2019-05-31 12:13] MED LIST changes: +ONDA4TAB6 PO
[2019-05-31 12:17] VITALS: BP 108/68
[2019-05-31 12:46] LABS: BASOPHILS % (AUTO) 0.5 % (0-1); EOSINOPHILS # (AUTO) 0.1 X10'3 (0-0.9); EOSINOPHILS % (AUTO) 3.2 % (0-6); HEMATOCRIT 27.6 % (42.0-52.0); HEMOGLOBIN 9.5 g/dl (14.0-17.9); LYMPHOCYTES # (AUTO) 0.6 X10'3 (1.1-4.8); LYMPHOCYTES % (AUTO) 16.1 % (21-51); MEAN CORPUSCULAR HEMOGLOBIN 33.5 PG (27.0-31.0); MEAN CORPUSCULAR HGB CONC 34.5 g/dL (33.0-36.5); MEAN CORPUSCULAR VOLUME 96.9 FL (78-98); MEAN PLATELET VOLUME 8.1 FL (7.4-10.4); MONOCYTES # (AUTO) 0.4 X10'3 (0-0.9); MONOCYTES % (AUTO) 11.3 % (2-12); NEUTROPHILS # (AUTO) 2.7 X10'3 (1.8-7.7); NEUTROPHILS % (AUTO) 68.9 % (42-75); PLATELET COUNT 97 X10'3 (140-440); RED BLOOD COUNT 2.85 X10'6 (4.70-6.10)
[2019-05-31 13:11] LABS: ALANINE AMINOTRANSFERASE 23 U/L (12-78); ALBUMIN 2.1 G/DL (3.4-5.0); ALBUMIN/GLOBULIN RATIO 0.5 (1.1-1.5); ALKALINE PHOSPHATASE 123 IU/L (46-116); ANION GAP 6 (8-16); ASPARTATE AMINO TRANSFERASE 40 U/L (10-37); BILIRUBIN,TOTAL 1.8 MG/DL (0.1-1.0); BLOOD UREA NITROGEN 5 MG/DL (7-18); BUN/CREATININE RATIO 7.5 (5.4-32.0); CALCIUM 7.7 MG/DL (8.5-10.1); CHLORIDE 109 MMOL/L (99-107); CREATININE 0.67 MG/DL (0.60-1.10); GLUCOSE 111 MG/DL (70-104); LIPASE 245 U/L (73-393); POTASSIUM 3.1 MMOL/L (3.5-5.1); SODIUM 142 MMOL/L (135-145); TOTAL CARBON DIOXIDE 27.4 MMOL/L (24-32); eGFR > 90 ML/MIN
== END 2019-05-31 13:49 | disposition home or self-care (01) ==
LOC: ER 12:13
DX: K74.60 Unspecified cirrhosis of liver (principal); R18.8 Other ascites; I25.2 Old myocardial infarction; M19.90 Unspecified osteoarthritis, unspecified site; G89.29 Other chronic pain; F10.10 Alcohol abuse, uncomplicated; Z98.890 Other specified postprocedural states; Z59.0 Homelessness; Z79.899 Other long term (current) drug therapy
CPT/HCPCS: 36415; 80053; 83605; 83690; 84484; 85025; 99283; 99284

== ENCOUNTER 2019-06-01 08:26 | Emergency (ER) | payer MEDICAID | END 2019-06-01 09:35 | disposition left against medical advice (07) | LOC: ER 08:27 | DX: R06.02 Shortness of breath (principal); Z53.21 Procedure and treatment not carried out due to patient leaving prior to being seen by health care provider ==

== ENCOUNTER 2019-06-02 07:53 | Emergency (ER) | payer MEDICAID ==
[~2019-06-02] VITALS: Ht 172.7 cm; Wt 93.0 kg
[2019-06-02] MEDS ORDERED: acetaminophen 325mg tablet PO ONE (09:20)
[2019-06-02 09:26] VITALS: BP 113/56
== END 2019-06-02 10:08 | disposition home or self-care (01) ==
LOC: ER 07:54
DX: M54.2 Cervicalgia (principal); M54.9 Dorsalgia, unspecified; I25.2 Old myocardial infarction; M19.90 Unspecified osteoarthritis, unspecified site; G89.29 Other chronic pain; Z98.890 Other specified postprocedural states; Z59.0 Homelessness; Z79.899 Other long term (current) drug therapy
CPT/HCPCS: 99282

== ENCOUNTER 2019-06-07 10:09 | Inpatient (IN) | payer MEDICAID ==
[~2019-06-07] VITALS: Ht 172.7 cm; Wt 79.9 kg
[2019-06-07 10:45] LABS: BASOPHILS % (AUTO) 0.2 % (0-1); EOSINOPHILS % (AUTO) 0.1 % (0-6); HEMATOCRIT 33.5 % (42.0-52.0); HEMOGLOBIN 11.6 g/dl (14.0-17.9); LYMPHOCYTES # (AUTO) 0.2 X10'3 (1.1-4.8); LYMPHOCYTES % (AUTO) 4.4 % (21-51); MEAN CORPUSCULAR HEMOGLOBIN 33.4 PG (27.0-31.0); MEAN CORPUSCULAR HGB CONC 34.6 g/dL (33.0-36.5); MEAN CORPUSCULAR VOLUME 96.6 FL (78-98); MEAN PLATELET VOLUME 7.8 FL (7.4-10.4); MONOCYTES # (AUTO) 0.7 X10'3 (0-0.9); MONOCYTES % (AUTO) 12.2 % (2-12); NEUTROPHILS # (AUTO) 4.7 X10'3 (1.8-7.7); NEUTROPHILS % (AUTO) 83.1 % (42-75); RED BLOOD COUNT 3.47 X10'6 (4.70-6.10); WHITE BLOOD COUNT 5.7 X10'3 (4.5-11.0)
[2019-06-07 11:01] LABS: ALANINE AMINOTRANSFERASE 38 U/L (12-78); ALBUMIN 2.5 G/DL (3.4-5.0); ALKALINE PHOSPHATASE 109 IU/L (46-116); ANION GAP 9 (8-16); ASPARTATE AMINO TRANSFERASE 75 U/L (10-37); BILIRUBIN,TOTAL 4.8 MG/DL (0.1-1.0); BLOOD UREA NITROGEN 9 MG/DL (7-18); BUN/CREATININE RATIO 9.5 (5.4-32.0); CHLORIDE 100 MMOL/L (99-107); CREATININE 0.95 MG/DL (0.60-1.10); GLUCOSE 109 MG/DL (70-104); LIPASE 264 U/L (73-393); POTASSIUM 3.6 MMOL/L (3.5-5.1); SODIUM 133 MMOL/L (135-145); TOTAL CARBON DIOXIDE 23.8 MMOL/L (24-32); eGFR > 90 ML/MIN
[2019-06-07 11:02] LABS: ALBUMIN/GLOBULIN RATIO 0.5 (1.1-1.5); TOTAL PROTEIN 7.1 G/DL (6.4-8.2)
[2019-06-07] MEDS ORDERED: proCHLORperazine 10 MG/2 ml inj IM ONE (11:15)
[2019-06-07] MEDS ORDERED: diphenhydrAMINE 50 mg/ml inj IM ONE (11:15)
[2019-06-07] MEDS ORDERED: normal saline 1000ML IV soln IVB ONE ×2 (11:15→16:25)
[2019-06-07 12:02] LABS: PLATELET COUNT 113 X10'3 (140-440)
[2019-06-07] MEDS ORDERED: LORazepam 2 mg/ml vial IV ONE (12:45)
[2019-06-07 12:58] LABS: ETHANOL < 0.010 GM/DL (0.0-0.010)
--- NOTE | 2019-06-07 14:19 | NUR ---
UNABLE TO SUCCESSFULLY CATH PT X2, PENIS AND SCROTUM SEVERE SWELLING. HOWARD ALCANTAR INFORMED
--- NOTE | 2019-06-07 14:45 | NUR ---
To CT scan via rmcintyre.
[2019-06-07] MEDS ORDERED: lactulose 20gm/30ml cup PO ONE (15:50)
[2019-06-07] MEDS ORDERED: MVI, adult No.4 with vit. K 10 ML in dextrose 5% water 500ml 490 ML IV STA ×2 (15:54)
[2019-06-07] MEDS ORDERED: chlordiazePOXIDE 25mg capsule PO ONE (15:55)
[2019-06-07] MEDS ORDERED: magnesium 1 gm/2ml inj. 1 GM in normal saline 100ml IV soln 100 ML IV SCH (16:00)
[2019-06-07] MEDS ORDERED: ketorolac tromethamine 15mg/ml inj. IV ONE (16:20)
[2019-06-07] MEDS ORDERED: CefTRIAXone/D5W-Rocephin 1gm 50 ML IV ONE (16:25)
[2019-06-07] MEDS ORDERED: PREN-187 PO (16:41)
[2019-06-07] MEDS ORDERED: NALT50TA PO (16:41)
[2019-06-07] MEDS ORDERED: NO HOME MEDS (16:49)
[2019-06-07] MEDS ORDERED: ondansetron/PF 4mg/2ml inj IV PRN (17:10)
[2019-06-07] MEDS ORDERED: mag hydrox/Alum hydrox/simeth 30ml oral suspension PO PRN (17:10)
[2019-06-07] MEDS ORDERED: magnesium hydroxide 30ml (MOM) UD suspension PO PRN (17:10)
[2019-06-07] MEDS ORDERED: morphine 2 MG/ML inj. syringe IV PRN (17:10)
[2019-06-07 17:48] LABS: C-REACTIVE PROTEIN 2.65 MG/DL (0.0-0.5); MAGNESIUM 1.6 MG/DL (1.5-2.4)
[2019-06-07 17:52] LABS: PHOSPHORUS 2.2 MG/DL (2.3-4.5)
[2019-06-07] MEDS: thiamine 100mg/ml 2ml inj. IV SCH (18:40)
--- NOTE | 2019-06-07 18:45 | NUR ---
PATIENT CONTINUES TO BE FEBRILE WITH TEMP 103.3 ORALLY. TYLENOL GIVEN ORDERED FOR FEVER.
[2019-06-07] MEDS: acetaminophen 325mg tablet PO PRN (18:47)
--- NOTE | 2019-06-07 18:59 | NUR ---
REPORT TO SUSHMA OLIVEIRA
[2019-06-07 19:00] VITALS: BP 90/47
[2019-06-07 20:00] VITALS: BP 90/47
--- NOTE | 2019-06-07 20:00 | NUR ---
PT UNABLE TO URINATE WITH GROSS SWELLING OF PENIS AND SCROTUM. BLADDER SCAN REVEALS 750ML OF URINE. ED ATTEMPTED TO STRAIGHT CATH PT W/ COUDE' x 3 UNSUCCESSFULLY. I ATTEMPTED ONCE WITHOUT SUCCESS. I NOTIFIED THE ART CONSULTANT MD AND NO NEW ORDERS GIVEN FOR THE TIME BEING.
[2019-06-08] VITALS (7 sets, daily range): BP systolic 92–100; BP diastolic 46–62
[2019-06-08] MEDS ORDERED: piperacillin/tazo 3.375gm/50ml 50 ML IV SCH
[2019-06-08] MEDS: morphine 2 MG/ML inj. syringe IV PRN ×3 (03:36→14:40)
--- NOTE | 2019-06-08 04:00 | NUR ---
PT BLADDER SCANNED AGAIN THIS TIME FOR 900ML. PT STILL UNABLE TO URINATE.
--- NOTE | 2019-06-08 05:20 | NUR ---
I CALLED THE [facility] UR[facility] DR. MACKENZIE AND EXPLAINED THE SITUATION. HE SAID TO HAVE THE UROLOGY CART AVAILABLE AND HE WAS DOING SURGERY TODAY UNTIL 3PM AND HE WILL BE HERE THEN. DR. GREWAL INFORMED OF THIS INFO.
[2019-06-08 06:10] LABS: ALBUMIN 1.9 G/DL (3.4-5.0); ANION GAP 7 (8-16); BLOOD UREA NITROGEN 10 MG/DL (7-18); BUN/CREATININE RATIO 11.4 (5.4-32.0); CALCIUM 7.3 MG/DL (8.5-10.1); CHLORIDE 103 MMOL/L (99-107); CREATININE 0.88 MG/DL (0.60-1.10); GLUCOSE 92 MG/DL (70-104); POTASSIUM 3.2 MMOL/L (3.5-5.1); SODIUM 134 MMOL/L (135-145); TOTAL CARBON DIOXIDE 23.7 MMOL/L (24-32); eGFR > 90 ML/MIN
--- NOTE | 2019-06-08 07:18 | NUR ---
paged Dr COCHRAN : Pt unable to urinate since yesterday, extremely distention noted. unable to put cath in d/t swollenness.Also pt + for blood cultures both bottles for gram + cocci in pairs & chains. L arm draw. Please call me [phone] thank you. Jossie Called his cell as well, left message to call me.
--- NOTE | 2019-06-08 07:24 | NUR ---
Patient in room SHEEBA 354. I have received report from Tristan OLIVEIRA and had the opportunity to ask questions and assume patient care.
--- NOTE | 2019-06-08 07:25 | NUR ---
pt bladder scanned 1030mls , previously scanned 900 at 0530. Pt extremely extended, Dr Cifuentes notified.
--- NOTE | 2019-06-08 07:35 | NUR ---
Dr Cifuentes called back and will call Dr Blount to follow up when he will see pt.
[2019-06-08 08:37] LABS: BASOPHILS % (AUTO) 0.2 % (0-1); EOSINOPHILS % (AUTO) 0.1 % (0-6); HEMATOCRIT 29.3 % (42.0-52.0); LYMPHOCYTES # (AUTO) 0.7 X10'3 (1.1-4.8); LYMPHOCYTES % (AUTO) 4.8 % (21-51); MEAN CORPUSCULAR HEMOGLOBIN 32.8 PG (27.0-31.0); MEAN CORPUSCULAR HGB CONC 34.2 g/dL (33.0-36.5); MONOCYTES # (AUTO) 1.2 X10'3 (0-0.9); NEUTROPHILS # (AUTO) 13.5 X10'3 (1.8-7.7); NEUTROPHILS % (AUTO) 86.9 % (42-75); RED BLOOD COUNT 3.05 X10'6 (4.70-6.10); RED CELL DISTRIBUTION WIDTH 14.8 % (11.5-14.5); WHITE BLOOD COUNT 15.5 X10'3 (4.5-11.0)
[2019-06-08 08:43] LABS: PLATELET COUNT 70 X10'3 (140-440)
[2019-06-08 08:44] LABS: MEAN PLATELET VOLUME 7.8 FL (7.4-10.4)
[2019-06-08 09:04] LABS: TOTAL CELLS COUNTED 100
[2019-06-08 09:10] LABS: ANISOCYTOSIS 1+; PLATELET ESTIMATE DECREASED
[2019-06-08 09:14] LABS: ACANTHOCYTES 1+; BURR CELLS 2+
[2019-06-08 09:15] LABS: POLYCHROMASIA FEW; TOXIC GRANULATION 3+
[2019-06-08] MEDS: CefTRIAXone 2gm/D5W 50ml 50 ML IV SCH (10:31)
[2019-06-08] MEDS: lactulose 20gm/30ml cup PO SCH ×3 (10:31→19:39)
[2019-06-08] MEDS ORDERED: albumin (human) 25% 100 ML IV solution IV ONE (11:45)
[2019-06-08] MEDS: thiamine 100mg/ml 2ml inj. IV SCH (12:40)
[2019-06-08 12:58] LABS: BF MESOTHELIAL CELLS FEW; BF RBC COUNT 64 /CU MM; BF WBC COUNT 4600 /CU MM (0-1000); BFAPPEAR CLOUDY; BFCOLOR YELLOW; BFVOLUME 45 ML; LYMPHOCYTES,BODY FLUID 7 %; MONOCYTES,BODY FLUID 3 %; NEUTROPHILS,BODY FLUID 90 %
[2019-06-08] MEDS: furosemide 40mg/4ml inj IV SCH ×2 (14:36→14:47)
[2019-06-08] MEDS: spironolactone 50 MG tablet PO SCH ×2 (14:37→14:53)
[2019-06-08] MEDS ORDERED: magnesium 2GM in 50ml NS 50 ML IV PRN (18:05)
[2019-06-08] MEDS ORDERED: magnesium Cl slow-release 64mg tablet PO PRN (18:05)
[2019-06-08] MEDS ORDERED: magnesium 4gm in 100ml NS 100 ML IV PRN (18:05)
[2019-06-08] MEDS ORDERED: potassium CL 10mEq/100ml bag 100 ML IV PRN (18:05)
[2019-06-08] MEDS ORDERED: potassium Cl 20 mEq SR tablet PO PRN (18:05)
--- NOTE | 2019-06-08 18:30 | NUR ---
Patient in room SHEEBA 354. I have received report from TEE Sethi and had the opportunity to ask questions and assume patient care. Addendum: 06/08/19 at 1853 by Angie Nixon RN Amended: Links added.
--- NOTE | 2019-06-08 18:49 | NUR ---
Problems reprioritized. Patient report given, questions answered & plan of care reviewed with Marilee Velasquez.
[2019-06-08] MEDS: acetaminophen 325mg tablet PO PRN (19:39)
[2019-06-08] MEDS: lactobacillus rhamnosus 10,000 MMU CELLS/CAPSULE PO SCH (19:39)
--- NOTE | 2019-06-08 19:40 | NUR ---
Lice found on pt hair x2+ placed in specimen container, few nits noted. Addendum: 06/09/19 at 0518 by Angie Nixon RN Amended: Links added.
[2019-06-08] MEDS ORDERED: albumin (human) 25% 100 ML IV solution IV SCH (20:00)
[2019-06-08] MEDS: potassium Cl 20 mEq SR tablet PO PRN (20:13)
[2019-06-08] MEDS ORDERED: Permethrin 1% 59ml topical rinse TP ONE (21:45)
--- NOTE | 2019-06-09 00:01 | NUR ---
Pt states will allow staff to shave his head and face. pt educated on Lice and treatment. Addendum: 06/09/19 at 0001 by Angie Nixon RN Amended: Links added.
--- NOTE | 2019-06-09 01:00 | NUR ---
18 erika landry per protocal with marily villanuevaotum elevated Addendum: 06/09/19 at 0408 by Angie Nixon RN Amended: Links added.
[2019-06-09] MEDS: lactulose 20gm/30ml cup PO SCH ×4 (01:39→19:52)
[2019-06-09] MEDS: potassium Cl 20 mEq SR tablet PO PRN ×4 (01:41→19:52)
[2019-06-09 02:00] VITALS: BP 92/48
--- NOTE | 2019-06-09 02:00 | NUR ---
Pt head was shaved by Kuona, with pt permission, pt head washed, face, maldonado and mustache washed, lice treatment per orders, mustache and maldonado combed, no nits noted, 1 lice removed. pt had entire bed bath, all linen changed, Addendum: 06/09/19 at 0414 by Angie Nixon RN Amended: Links added.
--- NOTE | 2019-06-09 05:04 | NUR ---
pt inc liq brown stool, pulled draw sheet out and threw on chest and linen on floor, hands washed, scrotum more edematous, sonu care, linen changed, scrotum elevated. Addendum: 06/09/19 at 0505 by Angie Nixon RN Amended: Links added.
[2019-06-09 06:11] LABS: ALBUMIN 2.2 G/DL (3.4-5.0); ANION GAP 6 (8-16); BLOOD UREA NITROGEN 12 MG/DL (7-18); BUN/CREATININE RATIO 13.3 (5.4-32.0); CALCIUM 8.1 MG/DL (8.5-10.1); CHLORIDE 105 MMOL/L (99-107); GLUCOSE 103 MG/DL (70-104); POTASSIUM 3.1 MMOL/L (3.5-5.1); SODIUM 135 MMOL/L (135-145); TOTAL CARBON DIOXIDE 24.2 MMOL/L (24-32); eGFR > 90 ML/MIN
--- NOTE | 2019-06-09 06:38 | NUR ---
Problems reprioritized. Patient report given, questions answered & plan of care reviewed with TEE Cristobal. Addendum: 06/09/19 at 0638 by Angie Nixon RN Amended: Links added.
[2019-06-09 07:05] LABS: BASOPHILS % (AUTO) 0.2 % (0-1); EOSINOPHILS % (AUTO) 0.1 % (0-6); HEMATOCRIT 31.3 % (42.0-52.0); HEMOGLOBIN 10.8 g/dl (14.0-17.9); LYMPHOCYTES # (AUTO) 0.7 X10'3 (1.1-4.8); LYMPHOCYTES % (AUTO) 4.2 % (21-51); MEAN CORPUSCULAR HEMOGLOBIN 33.4 PG (27.0-31.0); MEAN CORPUSCULAR HGB CONC 34.4 g/dL (33.0-36.5); MEAN CORPUSCULAR VOLUME 97.2 FL (78-98); MONOCYTES # (AUTO) 1.3 X10'3 (0-0.9); MONOCYTES % (AUTO) 8.5 % (2-12); NEUTROPHILS # (AUTO) 13.7 X10'3 (1.8-7.7); RED BLOOD COUNT 3.22 X10'6 (4.70-6.10); RED CELL DISTRIBUTION WIDTH 15.2 % (11.5-14.5); WHITE BLOOD COUNT 15.7 X10'3 (4.5-11.0)
[2019-06-09 07:07] LABS: MEAN PLATELET VOLUME 7.7 FL (7.4-10.4); PLATELET COUNT 59 X10'3 (140-440)
[2019-06-09 07:53] VITALS: BP 90/54
[2019-06-09 07:55] LABS: PLATELET ESTIMATE DECREASED; TOTAL CELLS COUNTED 100
[2019-06-09 07:56] LABS: BURR CELLS 2+; SCHISTOCYTES FEW
[2019-06-09 08:01] LABS: ACANTHOCYTES FEW; TOXIC GRANULATION 3+
[2019-06-09] MEDS: furosemide 40mg/4ml inj IV SCH (08:09)
[2019-06-09] MEDS: spironolactone 50 MG tablet PO SCH (08:10)
[2019-06-09] MEDS: lactobacillus rhamnosus 10,000 MMU CELLS/CAPSULE PO SCH ×2 (08:24→19:52)
[2019-06-09] MEDS: CefTRIAXone 2gm/D5W 50ml 50 ML IV SCH (08:24)
[2019-06-09] MEDS ORDERED: spironolactone 50 MG tablet PO STA (10:43)
[2019-06-09] MEDS ORDERED: furosemide 40mg/4ml inj IV ONE (10:45)
[2019-06-09 11:00] VITALS: BP 118/78
[2019-06-09] MEDS: morphine 2 MG/ML inj. syringe IV PRN (11:49)
[2019-06-09] MEDS: metroNIDAZOLE-Flagyl 500mg/NS 100 ML IV SCH ×2 (13:02→16:00)
--- NOTE | 2019-06-09 18:20 | NUR ---
Patient in room SHEEBA 353. I have received report from TEE Forrester and had the opportunity to ask questions and assume patient care. Addendum: 06/09/19 at 1820 by Lilian Mcdonough RN Amended: Links added.
[2019-06-09 19:30] VITALS: BP 106/54
[2019-06-09] MEDS: Ivermectin 3mg tablet PO SCH (19:52)
[2019-06-10] VITALS: BP 107/62
[2019-06-10] MEDS: metroNIDAZOLE-Flagyl 500mg/NS 100 ML IV SCH ×3 (00:56→16:42)
[2019-06-10] MEDS: lactulose 20gm/30ml cup PO SCH ×3 (02:06→20:29)
[2019-06-10 06:14] LABS: BASOPHILS % (AUTO) 0.1 % (0-1); EOSINOPHILS % (AUTO) 0.1 % (0-6); HEMATOCRIT 30.6 % (42.0-52.0); HEMOGLOBIN 10.4 g/dl (14.0-17.9); LYMPHOCYTES # (AUTO) 0.7 X10'3 (1.1-4.8); MEAN CORPUSCULAR HEMOGLOBIN 32.7 PG (27.0-31.0); MEAN CORPUSCULAR VOLUME 96.2 FL (78-98); MEAN PLATELET VOLUME 8.9 FL (7.4-10.4); MONOCYTES # (AUTO) 1.6 X10'3 (0-0.9); MONOCYTES % (AUTO) 9.1 % (2-12); NEUTROPHILS # (AUTO) 15.7 X10'3 (1.8-7.7); NEUTROPHILS % (AUTO) 86.7 % (42-75); RED BLOOD COUNT 3.18 X10'6 (4.70-6.10); RED CELL DISTRIBUTION WIDTH 14.7 % (11.5-14.5); WHITE BLOOD COUNT 18.1 X10'3 (4.5-11.0)
--- NOTE | 2019-06-10 06:20 | NUR ---
Patient in room SHEEBA 353. I have received report from Joan Muhammad RN and had the opportunity to ask questions and assume patient care.
--- NOTE | 2019-06-10 06:27 | NUR ---
Problems reprioritized. Patient report given, questions answered & plan of care reviewed with TEE Bobo..
[2019-06-10 06:50] LABS: PLATELET COUNT 63 X10'3 (140-440)
[2019-06-10 06:51] LABS: ANION GAP 7 (8-16); BLOOD UREA NITROGEN 11 MG/DL (7-18); BUN/CREATININE RATIO 15.3 (5.4-32.0); CALCIUM 7.8 MG/DL (8.5-10.1); CHLORIDE 104 MMOL/L (99-107); CREATININE 0.72 MG/DL (0.60-1.10); GLUCOSE 106 MG/DL (70-104); POTASSIUM 3.2 MMOL/L (3.5-5.1); SODIUM 134 MMOL/L (135-145); TOTAL CARBON DIOXIDE 23.5 MMOL/L (24-32); eGFR > 90 ML/MIN
[2019-06-10 06:52] LABS: ANISOCYTOSIS 1+; PLATELET ESTIMATE DECREASED; SCHISTOCYTES FEW; TOTAL CELLS COUNTED 100
[2019-06-10 06:53] LABS: ACANTHOCYTES FEW
[2019-06-10 07:00] VITALS: BP 99/59
[2019-06-10] MEDS: spironolactone 50 MG tablet PO SCH (08:30)
[2019-06-10] MEDS: lactobacillus rhamnosus 10,000 MMU CELLS/CAPSULE PO SCH ×2 (09:04→20:28)
[2019-06-10] MEDS: potassium Cl 20 mEq SR tablet PO PRN ×3 (09:04→16:44)
[2019-06-10] MEDS: furosemide 40mg/4ml inj IV SCH (09:18)
[2019-06-10] MEDS: CefTRIAXone 2gm/D5W 50ml 50 ML IV SCH (10:37)
[2019-06-10 11:00] VITALS: BP 100/65
[2019-06-10] MEDS: morphine 2 MG/ML inj. syringe IV PRN (12:31)
--- NOTE | 2019-06-10 18:20 | NUR ---
Problems reprioritized. Patient report given, questions answered & plan of care reviewed with TEE Hall & TEE Kelly.
--- NOTE | 2019-06-10 18:31 | NUR ---
Received report from TEE Bobo. Patient is resting comfortably on room air, in no apparent distress. Call light and items of frequent use within reach. Will continue to monitor.
[2019-06-10 19:00] VITALS: BP 108/68
[2019-06-10] MEDS ORDERED: LORazepam 2 mg/ml vial IV PRN ×2 (19:25)
[2019-06-11] VITALS: BP 113/75
[2019-06-11] MEDS: metroNIDAZOLE-Flagyl 500mg/NS 100 ML IV SCH ×4 (00:21→23:58)
[2019-06-11] MEDS: morphine 2 MG/ML inj. syringe IV PRN (01:41)
--- NOTE | 2019-06-11 06:08 | NUR ---
Problems reprioritized. Patient report given, questions answered & plan of care reviewed with TEE Garcia.
[2019-06-11 06:35] LABS: ANION GAP 7 (8-16); BLOOD UREA NITROGEN 10 MG/DL (7-18); CHLORIDE 103 MMOL/L (99-107); GLUCOSE 111 MG/DL (70-104); POTASSIUM 3.8 MMOL/L (3.5-5.1); SODIUM 134 MMOL/L (135-145); TOTAL CARBON DIOXIDE 23.8 MMOL/L (24-32)
[2019-06-11 06:36] LABS: BUN/CREATININE RATIO 12.8 (5.4-32.0); CALCIUM 7.7 MG/DL (8.5-10.1); CREATININE 0.78 MG/DL (0.60-1.10); eGFR > 90 ML/MIN
--- NOTE | 2019-06-11 06:36 | NUR ---
Patient in room SHEEBA 353. I have received report from TEE KENNEY and had the opportunity to ask questions and assume patient care.
[2019-06-11 07:00] VITALS: BP 99/66
[2019-06-11 07:16] LABS: BASOPHILS # (AUTO) 0.1 X10'3 (0-0.2); BASOPHILS % (AUTO) 0.6 % (0-1); EOSINOPHILS # (AUTO) 0.1 X10'3 (0-0.9); EOSINOPHILS % (AUTO) 1.1 % (0-6); HEMOGLOBIN 10.7 g/dl (14.0-17.9); LYMPHOCYTES # (AUTO) 1.1 X10'3 (1.1-4.8); LYMPHOCYTES % (AUTO) 9.3 % (21-51); MEAN CORPUSCULAR HGB CONC 34.6 g/dL (33.0-36.5); MEAN CORPUSCULAR VOLUME 95.2 FL (78-98); MEAN PLATELET VOLUME 8.7 FL (7.4-10.4); MONOCYTES % (AUTO) 17.6 % (2-12); NEUTROPHILS # (AUTO) 8.3 X10'3 (1.8-7.7); NEUTROPHILS % (AUTO) 71.4 % (42-75); PLATELET COUNT 90 X10'3 (140-440); RED BLOOD COUNT 3.26 X10'6 (4.70-6.10); RED CELL DISTRIBUTION WIDTH 14.5 % (11.5-14.5); WHITE BLOOD COUNT 11.6 X10'3 (4.5-11.0)
[2019-06-11 07:50] LABS: TOTAL CELLS COUNTED 100
[2019-06-11 07:52] LABS: ACANTHOCYTES 1+; BURR CELLS FEW; PLATELET ESTIMATE DECREASED; POLYCHROMASIA FEW
[2019-06-11 07:53] LABS: TOXIC GRANULATION 1+
[2019-06-11] MEDS: lactulose 20gm/30ml cup PO SCH ×3 (08:00→22:05)
[2019-06-11] MEDS: lactobacillus rhamnosus 10,000 MMU CELLS/CAPSULE PO SCH ×2 (09:04→22:05)
[2019-06-11] MEDS: spironolactone 50 MG tablet PO SCH (09:04)
[2019-06-11] MEDS: CefTRIAXone 2gm/D5W 50ml 50 ML IV SCH (09:05)
[2019-06-11 11:00] VITALS: BP 130/75
[2019-06-11] MEDS ORDERED: levoFLOXACIN 750MG TABLET PO ONE (12:30)
--- NOTE | 2019-06-11 18:38 | NUR ---
Problems reprioritized. Patient report given, questions answered & plan of care reviewed with TEE LAWRENCE.
--- NOTE | 2019-06-11 18:40 | NUR ---
Patient in room SHEEBA 353. I have received report from Radha OLIVEIRA and had the opportunity to ask questions and assume patient care.
[2019-06-11 20:00] VITALS: BP 119/72
[2019-06-12] VITALS: BP 115/68
[2019-06-12 05:35] LABS: ALBUMIN 1.7 G/DL (3.4-5.0); ANION GAP 5 (8-16); BLOOD UREA NITROGEN 7 MG/DL (7-18); BUN/CREATININE RATIO 11.3 (5.4-32.0); CALCIUM 7.3 MG/DL (8.5-10.1); CHLORIDE 102 MMOL/L (99-107); CREATININE 0.62 MG/DL (0.60-1.10); GLUCOSE 89 MG/DL (70-104); POTASSIUM 3.7 MMOL/L (3.5-5.1); SODIUM 130 MMOL/L (135-145); TOTAL CARBON DIOXIDE 23.5 MMOL/L (24-32); eGFR > 90 ML/MIN
--- NOTE | 2019-06-12 06:27 | NUR ---
Problems reprioritized. Patient report given, questions answered & plan of care reviewed with Radha OLIVEIRA.
--- NOTE | 2019-06-12 06:40 | NUR ---
Patient in room SHEEBA 353. I have received report from TEE LAWRENCE and had the opportunity to ask questions and assume patient care.
[2019-06-12 06:58] LABS: HEMOGLOBIN 11.2 g/dl (14.0-17.9); MEAN CORPUSCULAR HEMOGLOBIN 33.2 PG (27.0-31.0); MEAN CORPUSCULAR HGB CONC 34.9 g/dL (33.0-36.5); MEAN PLATELET VOLUME 8.5 FL (7.4-10.4); PLATELET COUNT 90 X10'3 (140-440); RED BLOOD COUNT 3.37 X10'6 (4.70-6.10); RED CELL DISTRIBUTION WIDTH 14.9 % (11.5-14.5); WHITE BLOOD COUNT 8.2 X10'3 (4.5-11.0)
[2019-06-12 07:26] LABS: PLATELET ESTIMATE DECREASED; TOTAL CELLS COUNTED 100
[2019-06-12 07:27] LABS: ACANTHOCYTES 1+; BURR CELLS FEW; POLYCHROMASIA FEW; ROULEAUX 1+; TOXIC GRANULATION 1+
[2019-06-12] MEDS: lactulose 20gm/30ml cup PO SCH ×3 (07:45→21:02)
[2019-06-12] MEDS: furosemide 40mg/4ml inj IV SCH (07:45)
[2019-06-12] MEDS: lactobacillus rhamnosus 10,000 MMU CELLS/CAPSULE PO SCH ×2 (07:45→21:02)
[2019-06-12] MEDS: spironolactone 50 MG tablet PO SCH (07:45)
[2019-06-12] MEDS: metroNIDAZOLE-Flagyl 500mg/NS 100 ML IV SCH ×3 (07:46→23:50)
[2019-06-12] MEDS: CefTRIAXone 2gm/D5W 50ml 50 ML IV SCH (09:44)
[2019-06-12 10:00] VITALS: BP 111/73
[2019-06-12 12:00] VITALS: BP 112/68
[2019-06-12] MEDS: levoFLOXACIN 750MG TABLET PO SCH (12:12)
[2019-06-12 14:53] LABS: BANDS% (MANUAL) 1 % (0-10)
[2019-06-12 14:54] LABS: EOSINOPHILS % (MANUAL) 2 % (0-6); LYMPHOCYTES % (MANUAL) 8 % (21-51); METAMYLEOCYTES% (MANUAL) 1 % (0-0); MONOCYTES % (MANUAL) 16 % (2-12); MYELOCYTES % (MANUAL) 2 % (0-0)
[2019-06-12 14:58] LABS: NEUTROPHILS % (MANUAL) 70 % (42-75)
--- NOTE | 2019-06-12 17:03 | NUR ---
Initial: Pt admit w/ SBP s/p paracentesis -5500ml, sepsis secondary to strep pyogenes r/t SBP, hepatic encephalopathy, decompensated cirrhosis w/ ascites, and macrocytic anemia w/ liver disease per MD. Hx homeless and lice isolation. AOx2 today PO 50-75% avg heart healthy meals fluctuating w/ ALOC. LBM 06/10 receiving routine lactulose. Ensure high protein TIDWM added given additional protein needs w/ DX. Will continue to monitor. Rec: 1. continue heart healthy diet per MD 2. ensure high protein TIDWM 3. routine bowel care 4. weekly wts Addendum: 06/12/19 at [address] Amended: Links added.
[2019-06-12] MEDS: lactose-reduced food (Ensure High Protein) 237ml bottle PO SCH (18:00)
--- NOTE | 2019-06-12 18:25 | NUR ---
Problems reprioritized. Patient report given, questions answered & plan of care reviewed with TEE ORDAZ.
[2019-06-12 19:00] VITALS: BP 125/78
[2019-06-13] VITALS (7 sets, daily range): BP systolic 98–124; BP diastolic 57–82
[2019-06-13 05:25] LABS: BASOPHILS % (AUTO) 0.3 % (0-1); EOSINOPHILS # (AUTO) 0.1 X10'3 (0-0.9); EOSINOPHILS % (AUTO) 0.9 % (0-6); HEMATOCRIT 31.2 % (42.0-52.0); LYMPHOCYTES # (AUTO) 1.1 X10'3 (1.1-4.8); LYMPHOCYTES % (AUTO) 11.3 % (21-51); MEAN CORPUSCULAR HEMOGLOBIN 32.9 PG (27.0-31.0); MEAN CORPUSCULAR HGB CONC 35.2 g/dL (33.0-36.5); MEAN CORPUSCULAR VOLUME 93.5 FL (78-98); MEAN PLATELET VOLUME 8.4 FL (7.4-10.4); MONOCYTES # (AUTO) 1.8 X10'3 (0-0.9); MONOCYTES % (AUTO) 18.9 % (2-12); NEUTROPHILS # (AUTO) 6.6 X10'3 (1.8-7.7); NEUTROPHILS % (AUTO) 68.6 % (42-75); RED BLOOD COUNT 3.33 X10'6 (4.70-6.10); RED CELL DISTRIBUTION WIDTH 15.1 % (11.5-14.5)
[2019-06-13 05:42] LABS: WHITE BLOOD COUNT 9.4 X10'3 (4.5-11.0)
[2019-06-13 05:43] LABS: PLATELET COUNT 117 X10'3 (140-440)
[2019-06-13 05:55] LABS: ALANINE AMINOTRANSFERASE 16 U/L (12-78); ALBUMIN 1.8 G/DL (3.4-5.0); ALBUMIN/GLOBULIN RATIO 0.5 (1.1-1.5); ALKALINE PHOSPHATASE 76 IU/L (46-116); ANION GAP 4 (8-16); ASPARTATE AMINO TRANSFERASE 35 U/L (10-37); BILIRUBIN,TOTAL 2.5 MG/DL (0.1-1.0); BLOOD UREA NITROGEN 8 MG/DL (7-18); BUN/CREATININE RATIO 12.1 (5.4-32.0); CALCIUM 7.4 MG/DL (8.5-10.1); CHLORIDE 101 MMOL/L (99-107); CREATININE 0.66 MG/DL (0.60-1.10); GLUCOSE 107 MG/DL (70-104); POTASSIUM 3.9 MMOL/L (3.5-5.1); SODIUM 131 MMOL/L (135-145); TOTAL CARBON DIOXIDE 26.5 MMOL/L (24-32); TOTAL PROTEIN 5.8 G/DL (6.4-8.2); eGFR > 90 ML/MIN
--- NOTE | 2019-06-13 06:40 | NUR ---
Problems reprioritized. Patient report given, questions answered & plan of care reviewed with TRISTIN. Addendum: 06/13/19 at 0641 by Jay Warren RN Amended: Links added.
--- NOTE | 2019-06-13 06:43 | NUR ---
Patient in room SHEEBA 353. I have received report from Tristan OLIVEIRA and had the opportunity to ask questions and assume patient care.
[2019-06-13] MEDS: metroNIDAZOLE-Flagyl 500mg/NS 100 ML IV SCH (07:22)
[2019-06-13] MEDS: CefTRIAXone 2gm/D5W 50ml 50 ML IV SCH (07:22)
[2019-06-13] MEDS: lactobacillus rhamnosus 10,000 MMU CELLS/CAPSULE PO SCH ×2 (07:24→20:23)
[2019-06-13] MEDS: lactulose 20gm/30ml cup PO SCH ×3 (07:24→20:23)
[2019-06-13] MEDS: furosemide 20 MG/2 ML vial IV SCH (07:24)
[2019-06-13 07:36] LABS: TOTAL CELLS COUNTED 100
[2019-06-13 07:37] LABS: PLATELET ESTIMATE DECREASED
[2019-06-13] MEDS: lactose-reduced food (Ensure High Protein) 237ml bottle PO SCH ×3 (08:00→18:00)
[2019-06-13] MEDS: spironolactone 50 MG tablet PO SCH (08:30)
--- NOTE | 2019-06-13 09:00 | NUR ---
PAGER ID: [phone] MESSAGE: [phone] Jones Tijerina would like medication for a JOHNSON. Gracie [phone]
[2019-06-13] MEDS ORDERED: acetaminophen 325mg tablet PO PRN (09:20)
[2019-06-13] MEDS: levoFLOXACIN 750MG TABLET PO SCH (10:59)
--- NOTE | 2019-06-13 12:58 | NUR ---
Order to hold AM dose of Aldactone 100 mg for low BP this morning.
[2019-06-13] MEDS: metroNIDAZOLE 500mg tablet PO SCH ×2 (16:34→23:15)
--- NOTE | 2019-06-13 18:00 | NUR ---
Patient in room SHEEBA 353. I have received report from Gracie OLIVEIRA and had the opportunity to ask questions and assume patient care.
--- NOTE | 2019-06-13 18:39 | NUR ---
Problems reprioritized. Patient report given, questions answered & plan of care reviewed with Griselda OLIVEIRA.
--- NOTE | 2019-06-14 04:44 | NUR ---
Due to system unavailability all documentation completed is found in the paper chart during the following time frame: starting date: 06-13-2019 time: 2342 ending date: 06-14-2019 time: 0125
[2019-06-14 05:27] LABS: BASOPHILS % (AUTO) 0.4 % (0-1); EOSINOPHILS # (AUTO) 0.1 X10'3 (0-0.9); EOSINOPHILS % (AUTO) 0.7 % (0-6); HEMATOCRIT 32.2 % (42.0-52.0); HEMOGLOBIN 11.4 g/dl (14.0-17.9); LYMPHOCYTES # (AUTO) 0.9 X10'3 (1.1-4.8); LYMPHOCYTES % (AUTO) 9.1 % (21-51); MEAN CORPUSCULAR HEMOGLOBIN 33.4 PG (27.0-31.0); MEAN CORPUSCULAR HGB CONC 35.5 g/dL (33.0-36.5); MEAN PLATELET VOLUME 8.1 FL (7.4-10.4); MONOCYTES # (AUTO) 1.2 X10'3 (0-0.9); MONOCYTES % (AUTO) 12.4 % (2-12); NEUTROPHILS # (AUTO) 7.7 X10'3 (1.8-7.7); NEUTROPHILS % (AUTO) 77.4 % (42-75); PLATELET COUNT 143 X10'3 (140-440); RED BLOOD COUNT 3.43 X10'6 (4.70-6.10)
[2019-06-14 05:49] LABS: ALANINE AMINOTRANSFERASE 14 U/L (12-78); ALBUMIN 1.7 G/DL (3.4-5.0); ALBUMIN/GLOBULIN RATIO 0.4 (1.1-1.5); ALKALINE PHOSPHATASE 69 IU/L (46-116); ANION GAP 4 (8-16); ASPARTATE AMINO TRANSFERASE 33 U/L (10-37); BILIRUBIN,TOTAL 2.5 MG/DL (0.1-1.0); BLOOD UREA NITROGEN 10 MG/DL (7-18); BUN/CREATININE RATIO 15.9 (5.4-32.0); CALCIUM 7.2 MG/DL (8.5-10.1); CHLORIDE 101 MMOL/L (99-107); CREATININE 0.63 MG/DL (0.60-1.10); GLUCOSE 93 MG/DL (70-104); POTASSIUM 3.9 MMOL/L (3.5-5.1); SODIUM 130 MMOL/L (135-145); TOTAL CARBON DIOXIDE 24.6 MMOL/L (24-32); TOTAL PROTEIN 5.6 G/DL (6.4-8.2); eGFR > 90 ML/MIN
--- NOTE | 2019-06-14 06:12 | NUR ---
Problems reprioritized. Patient report given, questions answered & plan of care reviewed with Jossie OLIVEIRA.
--- NOTE | 2019-06-14 07:13 | NUR ---
Patient in room SHEEBA 353. I have received report from Griselda OLIVEIRA and had the opportunity to ask questions and assume patient care.
[2019-06-14 08:00] VITALS: BP 122/64
[2019-06-14] MEDS: furosemide 20 MG/2 ML vial IV SCH (08:00)
[2019-06-14] MEDS: lactobacillus rhamnosus 10,000 MMU CELLS/CAPSULE PO SCH ×2 (08:00→20:42)
[2019-06-14] MEDS: metroNIDAZOLE 500mg tablet PO SCH ×2 (08:00→17:14)
[2019-06-14] MEDS: lactose-reduced food (Ensure High Protein) 237ml bottle PO SCH ×3 (08:00→18:00)
[2019-06-14] MEDS: spironolactone 50 MG tablet PO SCH (08:30)
[2019-06-14 11:00] VITALS: BP 109/66
[2019-06-14] MEDS: levoFLOXACIN 750MG TABLET PO SCH (17:14)
--- NOTE | 2019-06-14 18:15 | NUR ---
Problems reprioritized. Patient report given, questions answered & plan of care reviewed with Griselda OLIVEIRA.
--- NOTE | 2019-06-14 18:30 | NUR ---
Patient in room SHEEBA 353. I have received report from Za OLIVEIRA and had the opportunity to ask questions and assume patient care.
[2019-06-14 20:00] VITALS: BP 109/68
[2019-06-14] MEDS: lactulose 20gm/30ml cup PO SCH (20:43)
[2019-06-15] VITALS: BP 132/79
[2019-06-15 05:22] LABS: BASOPHILS # (AUTO) 0.1 X10'3 (0-0.2); BASOPHILS % (AUTO) 0.6 % (0-1); EOSINOPHILS % (AUTO) 0.5 % (0-6); HEMATOCRIT 30.9 % (42.0-52.0); HEMOGLOBIN 10.9 g/dl (14.0-17.9); LYMPHOCYTES # (AUTO) 0.9 X10'3 (1.1-4.8); MEAN CORPUSCULAR HEMOGLOBIN 33.3 PG (27.0-31.0); MEAN CORPUSCULAR HGB CONC 35.3 g/dL (33.0-36.5); MEAN CORPUSCULAR VOLUME 94.4 FL (78-98); MEAN PLATELET VOLUME 7.9 FL (7.4-10.4); MONOCYTES # (AUTO) 1.1 X10'3 (0-0.9); MONOCYTES % (AUTO) 11.8 % (2-12); NEUTROPHILS # (AUTO) 7.1 X10'3 (1.8-7.7); NEUTROPHILS % (AUTO) 77.1 % (42-75); PLATELET COUNT 158 X10'3 (140-440); RED BLOOD COUNT 3.27 X10'6 (4.70-6.10); RED CELL DISTRIBUTION WIDTH 14.9 % (11.5-14.5); WHITE BLOOD COUNT 9.2 X10'3 (4.5-11.0)
[2019-06-15 06:13] LABS: ALANINE AMINOTRANSFERASE 16 U/L (12-78); ALBUMIN 1.7 G/DL (3.4-5.0); ALBUMIN/GLOBULIN RATIO 0.4 (1.1-1.5); ALKALINE PHOSPHATASE 72 IU/L (46-116); ANION GAP 3 (8-16); ASPARTATE AMINO TRANSFERASE 34 U/L (10-37); BILIRUBIN,TOTAL 2.4 MG/DL (0.1-1.0); BLOOD UREA NITROGEN 9 MG/DL (7-18); BUN/CREATININE RATIO 14.5 (5.4-32.0); CALCIUM 7.2 MG/DL (8.5-10.1); CHLORIDE 100 MMOL/L (99-107); CREATININE 0.62 MG/DL (0.60-1.10); GLUCOSE 98 MG/DL (70-104); SODIUM 129 MMOL/L (135-145); TOTAL CARBON DIOXIDE 26.4 MMOL/L (24-32); TOTAL PROTEIN 5.8 G/DL (6.4-8.2); eGFR > 90 ML/MIN
--- NOTE | 2019-06-15 06:46 | NUR ---
Problems reprioritized. Patient report given, questions answered & plan of care reviewed with Yris OLIVEIRA.
[2019-06-15] MEDS: spironolactone 50 MG tablet PO SCH (07:44)
[2019-06-15] MEDS: lactulose 20gm/30ml cup PO SCH ×2 (07:44→19:47)
[2019-06-15] MEDS: lactobacillus rhamnosus 10,000 MMU CELLS/CAPSULE PO SCH ×2 (07:44→19:47)
[2019-06-15] MEDS: furosemide 20 MG/2 ML vial IV SCH ×3 (07:45→19:46)
[2019-06-15] MEDS: metroNIDAZOLE 500mg tablet PO SCH ×3 (07:45→15:19)
[2019-06-15] MEDS: morphine 2 MG/ML inj. syringe IV PRN ×2 (07:48→19:54)
[2019-06-15 08:00] VITALS: BP 106/67
[2019-06-15] MEDS: lactose-reduced food (Ensure High Protein) 237ml bottle PO SCH ×3 (08:54→18:01)
[2019-06-15] MEDS ORDERED: LIDOcaine 2% 10ml TOPICAL JELLY (Urojet) TP ONE (09:05)
--- NOTE | 2019-06-15 09:09 | NUR ---
MD Raymundo aware of pt's herniated umbilical area, CA level, bili level, and NA level. See new orders.
[2019-06-15 09:22] LABS: MAGNESIUM 1.7 MG/DL (1.5-2.4)
[2019-06-15 11:00] VITALS: BP 95/54
--- NOTE | 2019-06-15 11:47 | NUR ---
Reassessment: Pt s/p paracentesis 06/12 with 5.8 L fluid removed. Patient's PO intake significantly improved to 100% on 06/12 through breakfast 06/13 however down to 25-50% at lunch and dinner 06/13. Pending documentation of PO intake for today. Pt with fluctuating PO intake of ONS, initially with 100% of first ONS then down to 25%. Pt continues to be A/O x 2, likely contributing to fluctuations in PO intake. LBM 06/13 documented as liquid. Lactulose rx changed from TID to BID per MD notes. Will continue to follow and monitor need for additional nutrition intervention. Rec: 1. continue heart healthy diet per MD 2. ensure high protein TIDWM 3. routine bowel care 4. weekly wts Addendum: 06/15/19 at [address] Amended: Links added.
[2019-06-15] MEDS: levoFLOXACIN 750MG TABLET PO SCH (12:15)
--- NOTE | 2019-06-15 17:00 | NUR ---
CHIP MIXING MACHINE OPERATOR came to this RN and stated pt. having chest pain. Assessed pt. - Pt. c/o 11/30 Left Upper chest pain with no SOB and no radiation. Hurts more when chest is touched. Rapid called, charge aware. Vitals taken: 99.4temp, 104/61, 101 HR, 94% SA02 on RA, and 20 RR. Stat EKG ran and given to Zackary, troponin ordered. 1 mg Morphine given per order. MD in to reassess pt. States pt most likely is not having "heart pains" but pain coming from connecting tissues between ribs and sternum or costochondritis.
[2019-06-15] MEDS ORDERED: LIDOcaine/PRILOcaine 5gm cream TP PRN (17:35)
--- NOTE | 2019-06-15 18:52 | NUR ---
Gave report to Clark OLIVEIRA.
[2019-06-15 20:00] VITALS: BP 101/68
[2019-06-16] VITALS: BP 117/72
[2019-06-16] MEDS: metroNIDAZOLE 500mg tablet PO SCH ×4 (00:40→23:37)
[2019-06-16] MEDS: morphine 2 MG/ML inj. syringe IV PRN (00:40)
[2019-06-16 05:33] LABS: BASOPHILS # (AUTO) 0.1 X10'3 (0-0.2); BASOPHILS % (AUTO) 0.9 % (0-1); EOSINOPHILS # (AUTO) 0.1 X10'3 (0-0.9); EOSINOPHILS % (AUTO) 0.6 % (0-6); HEMATOCRIT 31.2 % (42.0-52.0); HEMOGLOBIN 10.9 g/dl (14.0-17.9); LYMPHOCYTES # (AUTO) 1.1 X10'3 (1.1-4.8); LYMPHOCYTES % (AUTO) 9.2 % (21-51); MEAN CORPUSCULAR HGB CONC 35.1 g/dL (33.0-36.5); MEAN CORPUSCULAR VOLUME 94.1 FL (78-98); MEAN PLATELET VOLUME 7.9 FL (7.4-10.4); MONOCYTES # (AUTO) 1.3 X10'3 (0-0.9); MONOCYTES % (AUTO) 10.8 % (2-12); NEUTROPHILS # (AUTO) 9.1 X10'3 (1.8-7.7); NEUTROPHILS % (AUTO) 78.5 % (42-75); PLATELET COUNT 152 X10'3 (140-440); RED BLOOD COUNT 3.32 X10'6 (4.70-6.10); RED CELL DISTRIBUTION WIDTH 15.1 % (11.5-14.5); WHITE BLOOD COUNT 11.6 X10'3 (4.5-11.0)
[2019-06-16 07:35] VITALS: BP 105/59
[2019-06-16] MEDS: lactobacillus rhamnosus 10,000 MMU CELLS/CAPSULE PO SCH ×2 (08:16→20:43)
[2019-06-16] MEDS: spironolactone 50 MG tablet PO SCH (08:16)
[2019-06-16] MEDS: lactose-reduced food (Ensure High Protein) 237ml bottle PO SCH ×3 (08:16→18:03)
[2019-06-16] MEDS: lactulose 20gm/30ml cup PO SCH ×2 (08:17→20:43)
[2019-06-16] MEDS: furosemide 20 MG/2 ML vial IV SCH ×2 (08:23→20:43)
[2019-06-16] MEDS: levoFLOXACIN 750MG TABLET PO SCH (10:43)
[2019-06-16] MEDS: Ivermectin 3mg tablet PO SCH (16:26)
[2019-06-16 18:00] VITALS: BP 99/59
--- NOTE | 2019-06-16 19:01 | NUR ---
Problems reprioritized. Patient report given, questions answered & plan of care reviewed with Kunal Monzon RN.
--- NOTE | 2019-06-16 19:35 | NUR ---
Patient in room SHEEBA 359. I have received report from TEE Monzon and had the opportunity to ask questions and assume patient care.
[2019-06-16 20:40] VITALS: BP 103/54
[2019-06-17] VITALS: BP 97/59
[2019-06-17 06:31] LABS: BASOPHILS # (AUTO) 0.1 X10'3 (0-0.2); BASOPHILS % (AUTO) 0.7 % (0-1); EOSINOPHILS # (AUTO) 0.1 X10'3 (0-0.9); EOSINOPHILS % (AUTO) 0.6 % (0-6); HEMATOCRIT 30.2 % (42.0-52.0); HEMOGLOBIN 10.6 g/dl (14.0-17.9); LYMPHOCYTES # (AUTO) 0.7 X10'3 (1.1-4.8); LYMPHOCYTES % (AUTO) 8.7 % (21-51); MEAN CORPUSCULAR HEMOGLOBIN 32.9 PG (27.0-31.0); MEAN CORPUSCULAR HGB CONC 35.1 g/dL (33.0-36.5); MEAN CORPUSCULAR VOLUME 93.7 FL (78-98); MEAN PLATELET VOLUME 7.3 FL (7.4-10.4); MONOCYTES % (AUTO) 12.1 % (2-12); NEUTROPHILS # (AUTO) 6.7 X10'3 (1.8-7.7); NEUTROPHILS % (AUTO) 77.9 % (42-75); PLATELET COUNT 130 X10'3 (140-440); RED BLOOD COUNT 3.22 X10'6 (4.70-6.10); RED CELL DISTRIBUTION WIDTH 15.4 % (11.5-14.5); WHITE BLOOD COUNT 8.6 X10'3 (4.5-11.0)
--- NOTE | 2019-06-17 06:38 | NUR ---
Problems reprioritized. Patient report given, questions answered & plan of care reviewed with TEE Monique.
[2019-06-17 06:56] LABS: PARTIAL THROMBOPLASTIN TIME 40 SECONDS (22-32)
[2019-06-17 07:03] LABS: ALANINE AMINOTRANSFERASE 14 U/L (12-78); ALBUMIN 1.7 G/DL (3.4-5.0); ALBUMIN/GLOBULIN RATIO 0.4 (1.1-1.5); ALKALINE PHOSPHATASE 69 IU/L (46-116); ANION GAP 4 (8-16); ASPARTATE AMINO TRANSFERASE 35 U/L (10-37); BILIRUBIN,TOTAL 2.5 MG/DL (0.1-1.0); BLOOD UREA NITROGEN 10 MG/DL (7-18); BUN/CREATININE RATIO 16.4 (5.4-32.0); CALCIUM 7.1 MG/DL (8.5-10.1); CHLORIDE 97 MMOL/L (99-107); CREATININE 0.61 MG/DL (0.60-1.10); GLUCOSE 96 MG/DL (70-104); POTASSIUM 3.6 MMOL/L (3.5-5.1); SODIUM 127 MMOL/L (135-145); TOTAL CARBON DIOXIDE 26.4 MMOL/L (24-32); TOTAL PROTEIN 5.8 G/DL (6.4-8.2); eGFR > 90 ML/MIN
[2019-06-17 07:43] VITALS: BP 93/58
[2019-06-17] MEDS: lactose-reduced food (Ensure High Protein) 237ml bottle PO SCH ×3 (08:00→18:00)
[2019-06-17] MEDS: lactulose 20gm/30ml cup PO SCH ×2 (09:47→19:46)
[2019-06-17] MEDS: lactobacillus rhamnosus 10,000 MMU CELLS/CAPSULE PO SCH ×2 (09:47→19:46)
[2019-06-17] MEDS: levoFLOXACIN 750MG TABLET PO SCH (09:47)
[2019-06-17] MEDS: spironolactone 50 MG tablet PO SCH (09:48)
[2019-06-17] MEDS: metroNIDAZOLE 500mg tablet PO SCH ×3 (09:48→23:23)
[2019-06-17 10:30] VITALS: BP 102/69
[2019-06-17] MEDS: furosemide 20 MG/2 ML vial IV SCH ×2 (10:31→19:47)
[2019-06-17 11:33] VITALS: BP 106/68
[2019-06-17 11:40] VITALS: BP 106/66
[2019-06-17 18:00] VITALS: BP 102/54
--- NOTE | 2019-06-17 18:30 | NUR ---
Patient in room [facility] 359. I have received report from TEE Monique and had the opportunity to ask questions and assume patient care.
[2019-06-18] VITALS: BP 86/47
[2019-06-18 05:36] LABS: BASOPHILS # (AUTO) 0.1 X10'3 (0-0.2); BASOPHILS % (AUTO) 0.5 % (0-1); EOSINOPHILS % (AUTO) 0.3 % (0-6); HEMATOCRIT 31.4 % (42.0-52.0); LYMPHOCYTES % (AUTO) 10.1 % (21-51); MEAN CORPUSCULAR HGB CONC 34.9 g/dL (33.0-36.5); MEAN CORPUSCULAR VOLUME 94.6 FL (78-98); MEAN PLATELET VOLUME 8.2 FL (7.4-10.4); MONOCYTES # (AUTO) 1.1 X10'3 (0-0.9); MONOCYTES % (AUTO) 11.2 % (2-12); NEUTROPHILS # (AUTO) 7.7 X10'3 (1.8-7.7); NEUTROPHILS % (AUTO) 77.9 % (42-75); PLATELET COUNT 139 X10'3 (140-440); RED BLOOD COUNT 3.32 X10'6 (4.70-6.10); RED CELL DISTRIBUTION WIDTH 15.3 % (11.5-14.5); WHITE BLOOD COUNT 9.9 X10'3 (4.5-11.0)
[2019-06-18 06:30] VITALS: BP 93/53
[2019-06-18 06:31] LABS: ALANINE AMINOTRANSFERASE 17 U/L (12-78); ALBUMIN 1.7 G/DL (3.4-5.0); ALBUMIN/GLOBULIN RATIO 0.4 (1.1-1.5); ALKALINE PHOSPHATASE 66 IU/L (46-116); ANION GAP 2 (8-16); ASPARTATE AMINO TRANSFERASE 37 U/L (10-37); BILIRUBIN,TOTAL 2.4 MG/DL (0.1-1.0); BLOOD UREA NITROGEN 10 MG/DL (7-18); BUN/CREATININE RATIO 14.5 (5.4-32.0); CALCIUM 7.4 MG/DL (8.5-10.1); CHLORIDE 98 MMOL/L (99-107); CREATININE 0.69 MG/DL (0.60-1.10); GLUCOSE 95 MG/DL (70-104); POTASSIUM 3.7 MMOL/L (3.5-5.1); SODIUM 128 MMOL/L (135-145); TOTAL CARBON DIOXIDE 27.6 MMOL/L (24-32); TOTAL PROTEIN 5.8 G/DL (6.4-8.2); eGFR > 90 ML/MIN
--- NOTE | 2019-06-18 06:31 | NUR ---
Problems reprioritized. Patient report given, questions answered & plan of care reviewed with TEE Bobo.
--- NOTE | 2019-06-18 06:40 | NUR ---
Patient in room SHEEBA 359. I have received report from TEE Mcgee and had the opportunity to ask questions and assume patient care.
[2019-06-18] MEDS: lactose-reduced food (Ensure High Protein) 237ml bottle PO SCH ×3 (08:00→18:02)
[2019-06-18] MEDS: spironolactone 50 MG tablet PO SCH (08:30)
[2019-06-18] MEDS: furosemide 20 MG/2 ML vial IV SCH ×2 (09:24→20:00)
[2019-06-18] MEDS: lactobacillus rhamnosus 10,000 MMU CELLS/CAPSULE PO SCH ×2 (09:24→21:21)
[2019-06-18] MEDS: metroNIDAZOLE 500mg tablet PO SCH ×2 (09:24→16:14)
--- NOTE | 2019-06-18 10:26 | NUR ---
Reassessment: Pt s/p paracentesis 06/16 with 2.1L fluid removed. PO intake averaging 50% of meals with 100% PO intake of ONS since last RD assessment. Pt roughly consuming 1664 kcal and 103 g protein meeting 86% estimated energy needs and 100% estimated protein needs with combined PO intake of ONS and meals. LBM 06/17. Pt continues with diarrhea r/t Lactulose. Will continue to follow. Rec: 1. continue heart healthy diet per MD 2. ensure high protein TIDWM; encourage PO intake of meals 3. routine bowel care 4. weekly wts Addendum: 06/18/19 at [address] Amended: Links added.
[2019-06-18 11:00] VITALS: BP 93/60
[2019-06-18] MEDS: levoFLOXACIN 750MG TABLET PO SCH (11:45)
[2019-06-18] MEDS: lactulose 20gm/30ml cup PO SCH ×2 (13:05→21:21)
--- NOTE | 2019-06-18 18:15 | NUR ---
Problems reprioritized. Patient report given, questions answered & plan of care reviewed with Vicki Cohen RN.
--- NOTE | 2019-06-18 18:30 | NUR ---
Patient in room [facility] 359. I have received report from DAI OLIVEIRA and had the opportunity to ask questions and assume patient care.
[2019-06-18 20:00] VITALS: BP 90/58
[2019-06-19] VITALS: BP 91/52
[2019-06-19] MEDS: metroNIDAZOLE 500mg tablet PO SCH ×4 (01:12→23:45)
[2019-06-19 05:27] LABS: HEMOGLOBIN 10.5 g/dl (14.0-17.9)
[2019-06-19 05:29] LABS: BASOPHILS # (AUTO) 0.1 X10'3 (0-0.2); BASOPHILS % (AUTO) 0.7 % (0-1); EOSINOPHILS % (AUTO) 0.5 % (0-6); HEMATOCRIT 30.2 % (42.0-52.0); LYMPHOCYTES % (AUTO) 12.2 % (21-51); MEAN CORPUSCULAR HEMOGLOBIN 33.5 PG (27.0-31.0); MEAN CORPUSCULAR HGB CONC 34.9 g/dL (33.0-36.5); MEAN PLATELET VOLUME 7.6 FL (7.4-10.4); MONOCYTES # (AUTO) 1.1 X10'3 (0-0.9); MONOCYTES % (AUTO) 13.8 % (2-12); NEUTROPHILS # (AUTO) 5.7 X10'3 (1.8-7.7); NEUTROPHILS % (AUTO) 72.8 % (42-75); PLATELET COUNT 128 X10'3 (140-440); RED BLOOD COUNT 3.14 X10'6 (4.70-6.10); RED CELL DISTRIBUTION WIDTH 15.5 % (11.5-14.5); WHITE BLOOD COUNT 7.8 X10'3 (4.5-11.0)
[2019-06-19 06:16] LABS: ALANINE AMINOTRANSFERASE 12 U/L (12-78); ALBUMIN 1.7 G/DL (3.4-5.0); ALBUMIN/GLOBULIN RATIO 0.4 (1.1-1.5); ALKALINE PHOSPHATASE 62 IU/L (46-116); ANION GAP 2 (8-16); ASPARTATE AMINO TRANSFERASE 33 U/L (10-37); BILIRUBIN,TOTAL 2.8 MG/DL (0.1-1.0); BLOOD UREA NITROGEN 10 MG/DL (7-18); BUN/CREATININE RATIO 15.2 (5.4-32.0); CALCIUM 7.5 MG/DL (8.5-10.1); CHLORIDE 99 MMOL/L (99-107); CREATININE 0.66 MG/DL (0.60-1.10); GLUCOSE 96 MG/DL (70-104); POTASSIUM 3.6 MMOL/L (3.5-5.1); SODIUM 129 MMOL/L (135-145); TOTAL CARBON DIOXIDE 27.6 MMOL/L (24-32); TOTAL PROTEIN 5.8 G/DL (6.4-8.2); eGFR > 90 ML/MIN
--- NOTE | 2019-06-19 06:23 | NUR ---
Problems reprioritized. Patient report given, questions answered & plan of care reviewed with DAI RN.
[2019-06-19 06:24] LABS: ACANTHOCYTES 1+; BURR CELLS FEW; PLATELET ESTIMATE DECREASED; SCHISTOCYTES FEW; TARGET CELLS FEW
[2019-06-19 06:30] VITALS: BP 95/52
--- NOTE | 2019-06-19 06:30 | NUR ---
Patient in room [facility] 359. I have received report from Vicki Cohen RN and had the opportunity to ask questions and assume patient care.
[2019-06-19] MEDS: furosemide 20 MG/2 ML vial IV SCH ×2 (07:24→20:24)
[2019-06-19] MEDS: spironolactone 50 MG tablet PO SCH (07:24)
[2019-06-19] MEDS: lactose-reduced food (Ensure High Protein) 237ml bottle PO SCH ×3 (08:00→18:44)
[2019-06-19] MEDS: levoFLOXACIN 750MG TABLET PO SCH (10:00)
[2019-06-19] MEDS: lactobacillus rhamnosus 10,000 MMU CELLS/CAPSULE PO SCH ×2 (10:01→20:24)
[2019-06-19] MEDS: lactulose 20gm/30ml cup PO SCH ×3 (10:01→20:24)
[2019-06-19 11:00] VITALS: BP 92/57
[2019-06-19 11:22] VITALS: BP 92/57
--- NOTE | 2019-06-19 18:50 | NUR ---
Problems reprioritized. Patient report given, questions answered & plan of care reviewed with TEE Rodas.
[2019-06-19 19:50] VITALS: BP 87/52
[2019-06-19 23:48] VITALS: BP 91/61
[2019-06-20 00:34] VITALS: BP_SYST 94
[2019-06-20 04:55] LABS: BASOPHILS # (AUTO) 0.1 X10'3 (0-0.2); BASOPHILS % (AUTO) 0.9 % (0-1); EOSINOPHILS % (AUTO) 0.5 % (0-6); HEMATOCRIT 29.6 % (42.0-52.0); HEMOGLOBIN 10.2 g/dl (14.0-17.9); LYMPHOCYTES % (AUTO) 11.7 % (21-51); MEAN CORPUSCULAR HGB CONC 34.4 g/dL (33.0-36.5); MEAN CORPUSCULAR VOLUME 95.8 FL (78-98); MEAN PLATELET VOLUME 8.1 FL (7.4-10.4); MONOCYTES # (AUTO) 1.4 X10'3 (0-0.9); MONOCYTES % (AUTO) 15.5 % (2-12); NEUTROPHILS # (AUTO) 6.2 X10'3 (1.8-7.7); NEUTROPHILS % (AUTO) 71.4 % (42-75); PLATELET COUNT 136 X10'3 (140-440); RED BLOOD COUNT 3.09 X10'6 (4.70-6.10); RED CELL DISTRIBUTION WIDTH 15.6 % (11.5-14.5); WHITE BLOOD COUNT 8.7 X10'3 (4.5-11.0)
[2019-06-20 05:11] LABS: ALANINE AMINOTRANSFERASE 16 U/L (12-78); ALBUMIN 1.6 G/DL (3.4-5.0); ALBUMIN/GLOBULIN RATIO 0.4 (1.1-1.5); ALKALINE PHOSPHATASE 63 IU/L (46-116); ANION GAP 0 (8-16); ASPARTATE AMINO TRANSFERASE 35 U/L (10-37); BILIRUBIN,TOTAL 2.1 MG/DL (0.1-1.0); BLOOD UREA NITROGEN 10 MG/DL (7-18); BUN/CREATININE RATIO 13.9 (5.4-32.0); CALCIUM 7.4 MG/DL (8.5-10.1); CHLORIDE 98 MMOL/L (99-107); CREATININE 0.72 MG/DL (0.60-1.10); GLUCOSE 120 MG/DL (70-104); POTASSIUM 3.6 MMOL/L (3.5-5.1); SODIUM 128 MMOL/L (135-145); TOTAL CARBON DIOXIDE 30.3 MMOL/L (24-32); TOTAL PROTEIN 5.8 G/DL (6.4-8.2); eGFR > 90 ML/MIN
--- NOTE | 2019-06-20 06:30 | NUR ---
I have received report from Clark OLIVEIRA and had the opportunity to ask questions and assume patient care.
[2019-06-20] MEDS: lactobacillus rhamnosus 10,000 MMU CELLS/CAPSULE PO SCH ×2 (07:52→20:12)
[2019-06-20] MEDS: lactulose 20gm/30ml cup PO SCH ×3 (07:53→20:12)
[2019-06-20] MEDS: metroNIDAZOLE 500mg tablet PO SCH ×2 (07:53→16:37)
[2019-06-20 07:55] VITALS: BP 93/55
[2019-06-20] MEDS: furosemide 20 MG/2 ML vial IV SCH ×2 (07:55→20:00)
[2019-06-20] MEDS: spironolactone 50 MG tablet PO SCH (07:55)
[2019-06-20] MEDS: lactose-reduced food (Ensure High Protein) 237ml bottle PO SCH ×3 (08:00→18:57)
[2019-06-20] MEDS: acetaminophen 325mg tablet PO PRN (09:10)
[2019-06-20] MEDS: levoFLOXACIN 750MG TABLET PO SCH (12:38)
[2019-06-20 13:01] VITALS: BP 86/50
--- NOTE | 2019-06-20 18:08 | NUR ---
Problems reprioritized. Patient report given, questions answered & plan of care reviewed with Clark OLIVEIRA.
[2019-06-20 19:38] VITALS: BP 97/58
[2019-06-21] MEDS: metroNIDAZOLE 500mg tablet PO SCH ×3 (00:35→17:06)
[2019-06-21 00:51] VITALS: BP 81/46
[2019-06-21 03:03] LABS: BASOPHILS # (AUTO) 0.1 X10'3 (0-0.2); EOSINOPHILS # (AUTO) 0.1 X10'3 (0-0.9); EOSINOPHILS % (AUTO) 0.8 % (0-6); HEMOGLOBIN 10.4 g/dl (14.0-17.9); LYMPHOCYTES # (AUTO) 0.9 X10'3 (1.1-4.8); LYMPHOCYTES % (AUTO) 11.3 % (21-51); MEAN CORPUSCULAR HEMOGLOBIN 33.3 PG (27.0-31.0); MEAN CORPUSCULAR HGB CONC 34.7 g/dL (33.0-36.5); MEAN CORPUSCULAR VOLUME 96.1 FL (78-98); MONOCYTES # (AUTO) 1.2 X10'3 (0-0.9); MONOCYTES % (AUTO) 15.3 % (2-12); NEUTROPHILS # (AUTO) 5.7 X10'3 (1.8-7.7); NEUTROPHILS % (AUTO) 71.6 % (42-75); PLATELET COUNT 128 X10'3 (140-440); RED BLOOD COUNT 3.13 X10'6 (4.70-6.10); RED CELL DISTRIBUTION WIDTH 15.6 % (11.5-14.5)
[2019-06-21 03:20] LABS: ALBUMIN 1.7 G/DL (3.4-5.0); ALBUMIN/GLOBULIN RATIO 0.4 (1.1-1.5); ANION GAP 1 (8-16); ASPARTATE AMINO TRANSFERASE 35 U/L (10-37); BILIRUBIN,TOTAL 2.2 MG/DL (0.1-1.0); BLOOD UREA NITROGEN 12 MG/DL (7-18); BUN/CREATININE RATIO 15.6 (5.4-32.0); CALCIUM 7.8 MG/DL (8.5-10.1); CHLORIDE 99 MMOL/L (99-107); CREATININE 0.77 MG/DL (0.60-1.10); GLUCOSE 113 MG/DL (70-104); SODIUM 129 MMOL/L (135-145); TOTAL CARBON DIOXIDE 29.5 MMOL/L (24-32); TOTAL PROTEIN 5.8 G/DL (6.4-8.2); eGFR > 90 ML/MIN
[2019-06-21 03:21] LABS: ALANINE AMINOTRANSFERASE 14 U/L (12-78); ALKALINE PHOSPHATASE 64 IU/L (46-116)
[2019-06-21 03:35] LABS: TOTAL CELLS COUNTED 100
[2019-06-21 03:37] LABS: PLATELET ESTIMATE DECREASED
[2019-06-21 03:38] LABS: POIKILOCYTOSIS FEW
--- NOTE | 2019-06-21 06:53 | NUR ---
Patient in room [facility] 359. I have received report from TEE Rodas and had the opportunity to ask questions and assume patient care.
[2019-06-21 07:42] VITALS: BP 104/66
[2019-06-21] MEDS: lactose-reduced food (Ensure High Protein) 237ml bottle PO SCH ×3 (08:00→18:28)
[2019-06-21] MEDS: lactobacillus rhamnosus 10,000 MMU CELLS/CAPSULE PO SCH ×2 (08:47→20:20)
[2019-06-21] MEDS: levoFLOXACIN 750MG TABLET PO SCH (12:57)
[2019-06-21] MEDS: lactulose 20gm/30ml cup PO SCH ×2 (12:58→20:20)
--- NOTE | 2019-06-21 14:46 | NUR ---
RECEIVED REPORT FORM TEE CASH
--- NOTE | 2019-06-21 15:27 | NUR ---
Problems reprioritized. Patient report given, questions answered & plan of care reviewed with TEE Garcia.
--- NOTE | 2019-06-21 18:35 | NUR ---
Problems reprioritized. Patient report given, questions answered & plan of care reviewed with TEE GIMENEZ.
[2019-06-21 20:00] VITALS: BP 93/55
[2019-06-21] MEDS: spironolactone 50 MG tablet PO SCH (20:21)
[2019-06-22 00:45] VITALS: BP 98/59
[2019-06-22] MEDS: metroNIDAZOLE 500mg tablet PO SCH ×3 (01:34→16:04)
[2019-06-22 06:17] LABS: BASOPHILS # (AUTO) 0.1 X10'3 (0-0.2); BASOPHILS % (AUTO) 1.2 % (0-1); EOSINOPHILS # (AUTO) 0.1 X10'3 (0-0.9); HEMATOCRIT 30.7 % (42.0-52.0); HEMOGLOBIN 10.6 g/dl (14.0-17.9); LYMPHOCYTES % (AUTO) 14.6 % (21-51); MEAN CORPUSCULAR HGB CONC 34.6 g/dL (33.0-36.5); MEAN CORPUSCULAR VOLUME 98.1 FL (78-98); MEAN PLATELET VOLUME 7.9 FL (7.4-10.4); MONOCYTES % (AUTO) 14.8 % (2-12); NEUTROPHILS # (AUTO) 4.5 X10'3 (1.8-7.7); NEUTROPHILS % (AUTO) 68.4 % (42-75); PLATELET COUNT 136 X10'3 (140-440); RED BLOOD COUNT 3.13 X10'6 (4.70-6.10); RED CELL DISTRIBUTION WIDTH 16.4 % (11.5-14.5); WHITE BLOOD COUNT 6.6 X10'3 (4.5-11.0)
[2019-06-22 06:27] LABS: ALBUMIN 1.8 G/DL (3.4-5.0); ALBUMIN/GLOBULIN RATIO 0.4 (1.1-1.5); ALKALINE PHOSPHATASE 62 IU/L (46-116); ANION GAP 0 (8-16); ASPARTATE AMINO TRANSFERASE 38 U/L (10-37); BILIRUBIN,TOTAL 2.5 MG/DL (0.1-1.0); BLOOD UREA NITROGEN 11 MG/DL (7-18); BUN/CREATININE RATIO 16.4 (5.4-32.0); CALCIUM 7.5 MG/DL (8.5-10.1); CHLORIDE 101 MMOL/L (99-107); CREATININE 0.67 MG/DL (0.60-1.10); GLUCOSE 100 MG/DL (70-104); POTASSIUM 3.8 MMOL/L (3.5-5.1); SODIUM 132 MMOL/L (135-145); TOTAL CARBON DIOXIDE 31.2 MMOL/L (24-32); TOTAL PROTEIN 6.1 G/DL (6.4-8.2); eGFR > 90 ML/MIN
--- NOTE | 2019-06-22 06:30 | NUR ---
Patient in room [facility] 359. I have received report from Griselda OLIVEIRA and had the opportunity to ask questions and assume patient care.
[2019-06-22 06:41] LABS: ALANINE AMINOTRANSFERASE 12 U/L (12-78)
[2019-06-22 07:41] VITALS: BP 100/62
[2019-06-22] MEDS: lactobacillus rhamnosus 10,000 MMU CELLS/CAPSULE PO SCH ×2 (08:07→20:21)
[2019-06-22] MEDS: lactulose 20gm/30ml cup PO SCH ×3 (08:07→20:21)
[2019-06-22] MEDS: furosemide 20MG tablet PO SCH (08:07)
[2019-06-22] MEDS: lactose-reduced food (Ensure High Protein) 237ml bottle PO SCH ×3 (08:11→18:00)
--- NOTE | 2019-06-22 10:28 | NUR ---
Reassessment: No significant changes in PO intake. Pt continues with fluctuations with average 50% PO intake with 100% x 2 meals and refusal x [address] assessment however continues with 100% PO intake of ONS closely meeting estimated energy needs and meeting estimated protein needs. LBM 06/21. Pt continues with diarrhea secondary to Lactulose. Ammonia WNL today. Will continue to follow. Rec: 1. continue heart healthy diet per MD 2. ensure high protein TIDWM; encourage PO intake of meals 3. routine bowel care 4. weekly wts Addendum: 06/22/19 at [address] Amended: Links added.
[2019-06-22 11:24] VITALS: BP 120/62
[2019-06-22] MEDS ORDERED: tamsulosin 0.4mg capsule PO ONE (11:25)
[2019-06-22] MEDS: levoFLOXACIN 750MG TABLET PO SCH (11:47)
--- NOTE | 2019-06-22 17:15 | NUR ---
Patient in room [facility] 359. I have received report from TEE Doherty and had the opportunity to ask questions and assume patient care.
[2019-06-22 18:00] VITALS: BP 96/54
--- NOTE | 2019-06-22 18:42 | NUR ---
Problems reprioritized. Patient report given, questions answered & plan of care reviewed with Griselda OLIVEIRA.
[2019-06-22] MEDS: spironolactone 50 MG tablet PO SCH (20:21)
[2019-06-22] MEDS: tamsulosin 0.4mg capsule PO SCH (20:21)
[2019-06-23] VITALS: BP 106/62
[2019-06-23] MEDS: metroNIDAZOLE 500mg tablet PO SCH ×3 (00:37→16:56)
--- NOTE | 2019-06-23 06:41 | NUR ---
Problems reprioritized. Patient report given, questions answered & plan of care reviewed with Yris OLIVEIRA.
[2019-06-23 07:55] VITALS: BP 84/41
[2019-06-23 07:57] VITALS: BP 93/55
[2019-06-23] MEDS: lactobacillus rhamnosus 10,000 MMU CELLS/CAPSULE PO SCH ×2 (08:51→20:16)
[2019-06-23] MEDS: lactulose 20gm/30ml cup PO SCH ×3 (08:52→20:16)
[2019-06-23] MEDS: lactose-reduced food (Ensure High Protein) 237ml bottle PO SCH ×4 (08:52→19:02)
[2019-06-23] MEDS: furosemide 20MG tablet PO SCH (08:52)
[2019-06-23 11:00] VITALS: BP 88/49
[2019-06-23] MEDS: levoFLOXACIN 750MG TABLET PO SCH (11:20)
--- NOTE | 2019-06-23 12:31 | NUR ---
Pt. has not voided at this time. Pt. bladder scanned - 228ml in bladder. MD aware of lower BP and higher pulse, states this is not a change of condition.
--- NOTE | 2019-06-23 16:30 | NUR ---
uNKNOWN IF PT VOIDED OR NOT. PT. SAT ON bc AND HAD LIQUID BM- UNKNOWN IF PT VOIDED. BLADDER SCANNED 305ML IN BLADDER
--- NOTE | 2019-06-23 16:33 | NUR ---
PAGER ID: [phone] MESSAGE: IDRIS WAS SCANNED AGAIN 305ML IN BLADDER. WHAT DO YOU WANT TO DO? IT'S BEEN 7.5 HOURS SINCE F/C REMOVED. CATRINA [id number]
--- NOTE | 2019-06-23 16:42 | NUR ---
SPOKE TO MD GREWAL ABOUT PT. NOT BEING ABLE TO VOID. STATED THERE WAS NOT A BIG CHANGE IN THE AMOUNT OF URINE IN THE PT'S BLADDER AND TO KEEP BLADDER SCANNING THE PT. EVERY 6 HOURS PER PROTOCOL AND TO CALL THE NIGHT DOCTOR IF THE PT. IS RETAINING AND STILL CAN NOT VOID. A UROLOGIST WILL MOST LIKELY NEED TO INSERT A COUDE THE PT. HAS HAD COMPLICATIONS BEFORE WITH F/C INSERTION.
--- NOTE | 2019-06-23 18:18 | NUR ---
Patient in room [facility]. I have received report from Yris OLIVEIRA and had the opportunity to ask questions and assume patient care.
--- NOTE | 2019-06-23 18:56 | NUR ---
Gave report to Griselda OLIVEIRA.
[2019-06-23 20:00] VITALS: BP 89/51
[2019-06-23] MEDS: tamsulosin 0.4mg capsule PO SCH (20:16)
[2019-06-24 00:04] VITALS: BP 94/56
[2019-06-24] MEDS: metroNIDAZOLE 500mg tablet PO SCH (00:16)
[2019-06-24 05:05] LABS: EOSINOPHILS # (AUTO) 0.1 X10'3 (0-0.9); HEMOGLOBIN 10.3 g/dl (14.0-17.9); MEAN CORPUSCULAR HGB CONC 34.8 g/dL (33.0-36.5)
[2019-06-24 05:24] LABS: ALBUMIN 1.8 G/DL (3.4-5.0); ANION GAP 3 (8-16); BILIRUBIN,TOTAL 2.2 MG/DL (0.1-1.0); BLOOD UREA NITROGEN 11 MG/DL (7-18); BUN/CREATININE RATIO 14.7 (5.4-32.0); CALCIUM 7.4 MG/DL (8.5-10.1); CHLORIDE 100 MMOL/L (99-107); CREATININE 0.75 MG/DL (0.60-1.10); GLUCOSE 101 MG/DL (70-104); POTASSIUM 4.1 MMOL/L (3.5-5.1); SODIUM 131 MMOL/L (135-145); TOTAL CARBON DIOXIDE 28.3 MMOL/L (24-32); TOTAL PROTEIN 6.2 G/DL (6.4-8.2); eGFR > 90 ML/MIN
[2019-06-24 05:25] LABS: ALANINE AMINOTRANSFERASE 15 U/L (12-78); ALBUMIN/GLOBULIN RATIO 0.4 (1.1-1.5); ALKALINE PHOSPHATASE 68 IU/L (46-116); ASPARTATE AMINO TRANSFERASE 41 U/L (10-37)
--- NOTE | 2019-06-24 06:17 | NUR ---
Problems reprioritized. Patient report given, questions answered & plan of care reviewed with Yris OLIVEIRA.
[2019-06-24 06:56] LABS: HEMATOCRIT 29.7 % (42.0-52.0); MEAN CORPUSCULAR HEMOGLOBIN 34.1 PG (27.0-31.0); MEAN CORPUSCULAR VOLUME 97.9 FL (78-98); RED BLOOD COUNT 3.03 X10'6 (4.70-6.10); RED CELL DISTRIBUTION WIDTH 17.1 % (11.5-14.5); WHITE BLOOD COUNT 6.8 X10'3 (4.5-11.0)
[2019-06-24 06:57] LABS: BASOPHILS # (AUTO) 0.2 X10'3 (0-0.2); BASOPHILS % (AUTO) 2.4 % (0-1); EOSINOPHILS % (AUTO) 1.8 % (0-6); LYMPHOCYTES # (AUTO) 1.1 X10'3 (1.1-4.8); LYMPHOCYTES % (AUTO) 16.1 % (21-51); MEAN PLATELET VOLUME 8.2 FL (7.4-10.4); MONOCYTES # (AUTO) 0.8 X10'3 (0-0.9); MONOCYTES % (AUTO) 11.6 % (2-12); NEUTROPHILS # (AUTO) 4.6 X10'3 (1.8-7.7); NEUTROPHILS % (AUTO) 68.1 % (42-75); PLATELET COUNT 113 X10'3 (140-440)
[2019-06-24 07:00] VITALS: BP 95/61
[2019-06-24 07:05] LABS: TOTAL CELLS COUNTED 100
[2019-06-24 07:08] LABS: ANISOCYTOSIS 1+; PLATELET ESTIMATE DECREASED
[2019-06-24 07:09] LABS: ACANTHOCYTES 1+; BURR CELLS FEW
[2019-06-24] MEDS: lactobacillus rhamnosus 10,000 MMU CELLS/CAPSULE PO SCH ×2 (08:47→20:00)
[2019-06-24] MEDS: lactulose 20gm/30ml cup PO SCH ×3 (08:47→20:00)
[2019-06-24] MEDS: furosemide 20MG tablet PO SCH (08:48)
[2019-06-24] MEDS: morphine 2 MG/ML inj. syringe IV PRN (08:54)
--- NOTE | 2019-06-24 11:58 | NUR ---
PT. STATES HE HAS VOIDED "AWHILE AGO". PT BLADDER SCANNED- 400 ML IN BLADDER.
[2019-06-24 12:00] VITALS: BP 95/62
[2019-06-24] MEDS: lactose-reduced food (Ensure High Protein) 237ml bottle PO SCH ×2 (13:07→18:00)
[2019-06-24 14:12] VITALS: BP 95/62
[2019-06-24 14:14] VITALS: BP 91/57
[2019-06-24] MEDS ORDERED: albumin (human) 25% 100 ML IV solution IV ONE (14:20)
--- NOTE | 2019-06-24 18:06 | NUR ---
Gave report to Aydee OLIVEIRA.
--- NOTE | 2019-06-24 18:30 | NUR ---
Patient in room [facility]. I have received report from Yris OLIVEIRA and had the opportunity to ask questions and assume patient care.
[2019-06-24 19:52] VITALS: BP 95/52
[2019-06-24] MEDS: tamsulosin 0.4mg capsule PO SCH (20:00)
[2019-06-25] VITALS: BP 98/61
--- NOTE | 2019-06-25 06:00 | NUR ---
Patient in room [facility]. I have received report from TEE Bajwa and had the opportunity to ask questions and assume patient care.
--- NOTE | 2019-06-25 06:20 | NUR ---
Problems reprioritized. Patient report given, questions answered & plan of care reviewed with Guillermo OLIVEIRA.
[2019-06-25 07:00] VITALS: BP 89/53
[2019-06-25] MEDS: furosemide 20MG tablet PO SCH (08:00)
[2019-06-25] MEDS: lactobacillus rhamnosus 10,000 MMU CELLS/CAPSULE PO SCH ×2 (08:17→21:29)
[2019-06-25] MEDS: lactose-reduced food (Ensure High Protein) 237ml bottle PO SCH ×3 (08:18→18:17)
[2019-06-25] MEDS: lactulose 20gm/30ml cup PO SCH ×3 (08:18→21:29)
[2019-06-25] MEDS: spironolactone 50 MG tablet PO SCH (08:30)
[2019-06-25] MEDS ORDERED: normal saline 500ml IV soln 250 ML IV ONE (09:00)
[2019-06-25] MEDS ORDERED: HYDROcodone/acetaminophen 5mg/325mg tablet PO PRN (10:55)
[2019-06-25 11:00] VITALS: BP 94/61
--- NOTE | 2019-06-25 12:23 | NUR ---
Bp was hypotensive, 82/40 this morning, MD Pacheco notified and ordered a once bolus of 250cc's of NS and to hold today's BP medications. also ordered that a james be placed if patient has a post void residual of greater than 200.
[2019-06-25] MEDS ORDERED: LIDOcaine 2% 10ml TOPICAL JELLY (Urojet) TP ONE (15:45)
[2019-06-25 18:00] VITALS: BP 95/64
--- NOTE | 2019-06-25 18:00 | NUR ---
Patient was assessed for pain today and while they reported being painful declined pain medication at this time.
--- NOTE | 2019-06-25 18:00 | NUR ---
Problems reprioritized. Patient report given, questions answered & plan of care reviewed with TEE Bajwa.
--- NOTE | 2019-06-25 18:30 | NUR ---
Patient in room [facility]. I have received report from Guillermo OLIVEIRA and had the opportunity to ask questions and assume patient care.
[2019-06-25] MEDS: tamsulosin 0.4mg capsule PO SCH (21:00)
[2019-06-26] VITALS: BP 99/60
--- NOTE | 2019-06-26 06:00 | NUR ---
Patient in room [facility]. I have received report from TEE Bajwa and had the opportunity to ask questions and assume patient care.
--- NOTE | 2019-06-26 06:20 | NUR ---
Problems reprioritized. Patient report given, questions answered & plan of care reviewed with Guillermo OLIVEIRA.
[2019-06-26 07:00] VITALS: BP 96/43
[2019-06-26] MEDS: lactose-reduced food (Ensure High Protein) 237ml bottle PO SCH ×3 (08:00→18:00)
[2019-06-26] MEDS: furosemide 20MG tablet PO SCH (08:00)
[2019-06-26] MEDS: spironolactone 50 MG tablet PO SCH (08:30)
[2019-06-26] MEDS: lactobacillus rhamnosus 10,000 MMU CELLS/CAPSULE PO SCH ×2 (08:44→19:42)
[2019-06-26] MEDS: lactulose 20gm/30ml cup PO SCH ×3 (08:45→20:51)
[2019-06-26] MEDS ORDERED: SPIR50TA5 PO (10:27)
[2019-06-26] MEDS ORDERED: LACT10SO32 PO (10:27)
[2019-06-26] MEDS ORDERED: HYDR-4383 PO (10:27)
[2019-06-26] MEDS ORDERED: FURO20TA4 PO (10:27)
[2019-06-26] MEDS ORDERED: tamsulosin capsule PO (10:27)
[2019-06-26 12:00] VITALS: BP 88/48
[2019-06-26] MEDS ORDERED: HYDR-3965 PO (12:35)
--- NOTE | 2019-06-26 18:00 | NUR ---
Patient was cleared for D/c today. Initially going home with family, family called and refused D/C. Plan changed to [place] but patient needed to be capable of going uphill per case management. Spoke with PT patient apparently successfully went up inclines twice last two days so cleared for D/c with a walker. Walker was brought to unit and cab was called. When patient brought down to cab, cabin supervisor refused to take patient as stated if patient could'nt get themselves in and out of car with 0% assistance they do not want to be responsible for them. Patient brought back up to unit and discharge reversed, is aware.
--- NOTE | 2019-06-26 18:00 | NUR ---
Problems reprioritized. Patient report given, questions answered & plan of care reviewed with Latrice RN.
[2019-06-26 19:30] VITALS: BP 95/58
[2019-06-26] MEDS: tamsulosin 0.4mg capsule PO SCH (20:50)
[2019-06-27] VITALS: BP 90/51
--- NOTE | 2019-06-27 06:41 | NUR ---
Patient in room [facility]. I have received report from Pat RN and had the opportunity to ask questions and assume patient care.
[2019-06-27 07:30] VITALS: BP 80/45
[2019-06-27] MEDS: furosemide 20MG tablet PO SCH (08:00)
[2019-06-27] MEDS: lactobacillus rhamnosus 10,000 MMU CELLS/CAPSULE PO SCH (08:17)
[2019-06-27] MEDS: lactose-reduced food (Ensure High Protein) 237ml bottle PO SCH ×2 (08:17→11:20)
[2019-06-27] MEDS: lactulose 20gm/30ml cup PO SCH (08:17)
[2019-06-27] MEDS: spironolactone 50 MG tablet PO SCH (08:30)
--- NOTE | 2019-06-27 11:21 | NUR ---
Patients strength is at baseline Addendum: 06/27/19 at 1125 by Gracie Richmond RN Amended: Links added.
--- NOTE | 2019-06-27 11:24 | NUR ---
Patient to be discharge with FC intact for retention Addendum: 06/27/19 at 1125 by Gracie Richmond RN Amended: Links added.
[2019-06-28] MEDS ORDERED: SPIR100T5 PO (12:47)
[2019-06-28] MEDS ORDERED: LACT10SO PO (12:47)
[2019-06-28] MEDS ORDERED: FLO0.4C PO (12:47)
[2019-06-28] MEDS ORDERED: HYDR-4383 PO (12:47)
[2019-06-28] MEDS ORDERED: FURO-150 PO (12:47)
== END 2019-06-27 11:50 | disposition home or self-care (01) | DRG 720 ==
LOC: ER 10:09 → ED HOLD 17:06 → SUR 3N 19:10 → UNDODISIN 06-26 15:55
PROVIDERS: ADMIT Internal Medicine; ATTEND Internal Medicine
PROC: 0W9G3ZZ Drainage of Peritoneal Cavity, Percutaneous Approach (ICD-10-PCS; principal; 2019-06-08)
PROC: 0W9G3ZZ Drainage of Peritoneal Cavity, Percutaneous Approach (ICD-10-PCS; 2019-06-13)
PROC: 0W9G3ZZ Drainage of Peritoneal Cavity, Percutaneous Approach (ICD-10-PCS; 2019-06-17)
PROC: 0W9G3ZZ Drainage of Peritoneal Cavity, Percutaneous Approach (ICD-10-PCS; 2019-06-24)
DX: A40.0 Sepsis due to streptococcus, group A (principal); K65.2 Spontaneous bacterial peritonitis; D69.6 Thrombocytopenia, unspecified; G31.2 Degeneration of nervous system due to alcohol; E87.1 Hypo-osmolality and hyponatremia; E88.09 Other disorders of plasma-protein metabolism, not elsewhere classified; R18.8 Other ascites; K72.90 Hepatic failure, unspecified without coma; D50.9 Iron deficiency anemia, unspecified; E11.9 Type 2 diabetes mellitus without complications; K74.60 Unspecified cirrhosis of liver; B85.2 Pediculosis, unspecified; F17.210 Nicotine dependence, cigarettes, uncomplicated; E87.6 Hypokalemia; G89.29 Other chronic pain; M19.90 Unspecified osteoarthritis, unspecified site; M54.9 Dorsalgia, unspecified; R33.9 Retention of urine, unspecified; M94.0 Chondrocostal junction syndrome [Tietze]; N48.89 Other specified disorders of penis; N50.89 Other specified disorders of the male genital organs; I25.2 Old myocardial infarction; Z59.0 Homelessness
CPT/HCPCS: 36415; 49083; 70450; 71045; 74176; 76705; 80048; 80053; 80320; 82140; 83605; 83615; 83690; 83735; 83880; 84100; 84145; 84484; 85025; 85610; 85730; 86140; 87040; 87070; 87077; 87081; 87186; 89051; 92950; 93005; 96365; 96372; 96375; 97110; 97116; 97161; 97530; 97535; 99285; G0378; J0696; J0780; J1200; J1885; J1940; J2060; J2270; J2543; J3411; J3475; J3490; J7030; J7040; J7060; P9047

== ENCOUNTER 2019-06-27 14:21 | Emergency (ER) | payer MEDICAID ==
[~2019-06-27] VITALS: Ht 170.2 cm; Wt 74.1 kg
[~2019-06-27 14:21] MED LIST changes: -CHLO25CA10 PO; -FLO0.1T PO; +FURO20TA4 PO; +HYDR-3965 PO; -IBUP-1984 PO; +LACT10SO32 PO; -MULT-1179 PO; -NO HOME MEDS; -ONDA4TAB6 PO; +SPIR50TA5 PO; -folic acid tablet PO; +tamsulosin capsule PO; -thiamine tablet PO
--- NOTE | 2019-06-27 15:41 | NUR ---
Mimi [facility] SW called seeking pt's permission to contact his family which pt provided verbal okay. Per Mimi, pt was dc'd to [facility] where he had a BM and was unable to clean up after himself so EMS was called.
--- NOTE | 2019-06-27 15:48 | NUR ---
Per EDLA Olhfs, no new orders @ this time.
[2019-06-27] MEDS ORDERED: HYDROcodone/acetaminophen 5mg/325mg tablet PO ONE (15:50)
--- NOTE | 2019-06-27 16:04 | NUR ---
Per Mimi, KEON pt's sister Montezs ([phone]) to call. Mimi spoke to Bharathi Freedman, brother in-law about possibiity of pt staying with him and Montezs. He deferred the decision to Deanna. When Mimi was asked how to disposition pt if family is unwilling to take him she responded, "try to convince them." When pressed further, after explaining this is beyond the realm of an ED RN, she responded, "then have the EDMD decide if he can be safely DC'd to the streets." URIEL Lindsey and ED Director Leticia notified.
--- NOTE | 2019-06-27 16:05 | NUR ---
Family contact info: Jane Freedman (sister) [phone] and brother in-law Bharathi Freedman [phone].
--- NOTE | 2019-06-27 16:16 | NUR ---
Left VM for sister to return call to the ER.
--- NOTE | 2019-06-27 16:24 | NUR ---
Per Leticia, she discussed admission DC situation with Mimi seeking approval for a hotel room. None was obtained. Per Leticia, if sister is unwilling to take pt, then he will be moved to EDOF until a safe DC can be established in the AM. URIEL Lindsey aware.
--- NOTE | 2019-06-27 17:33 | NUR ---
Dr Choudhury made aware of BP 81/49, to order additional labs.
[2019-06-27 17:59] LABS: BASOPHILS % (AUTO) 0.8 % (0-1); EOSINOPHILS % (AUTO) 0.8 % (0-6); HEMATOCRIT 31.3 % (42.0-52.0); HEMOGLOBIN 10.6 g/dl (14.0-17.9); LYMPHOCYTES # (AUTO) 0.6 X10'3 (1.1-4.8); MEAN CORPUSCULAR HEMOGLOBIN 33.2 PG (27.0-31.0); MEAN CORPUSCULAR VOLUME 97.8 FL (78-98); MEAN PLATELET VOLUME 7.9 FL (7.4-10.4); MONOCYTES # (AUTO) 0.5 X10'3 (0-0.9); MONOCYTES % (AUTO) 10.4 % (2-12); NEUTROPHILS # (AUTO) 3.9 X10'3 (1.8-7.7); PLATELET COUNT 103 X10'3 (140-440); RED CELL DISTRIBUTION WIDTH 19.4 % (11.5-14.5); WHITE BLOOD COUNT 5.2 X10'3 (4.5-11.0)
[2019-06-27 18:21] LABS: ALANINE AMINOTRANSFERASE 25 U/L (12-78); ALBUMIN 1.8 G/DL (3.4-5.0); ALBUMIN/GLOBULIN RATIO 0.4 (1.1-1.5); ALKALINE PHOSPHATASE 70 IU/L (46-116); ANION GAP 1 (8-16); ASPARTATE AMINO TRANSFERASE 53 U/L (10-37); BILIRUBIN,TOTAL 2.6 MG/DL (0.1-1.0); BLOOD UREA NITROGEN 11 MG/DL (7-18); BUN/CREATININE RATIO 16.2 (5.4-32.0); CALCIUM 7.5 MG/DL (8.5-10.1); CHLORIDE 101 MMOL/L (99-107); CREATININE 0.68 MG/DL (0.60-1.10); GLUCOSE 104 MG/DL (70-104); POTASSIUM 3.9 MMOL/L (3.5-5.1); SODIUM 132 MMOL/L (135-145); TOTAL CARBON DIOXIDE 29.6 MMOL/L (24-32); TOTAL PROTEIN 5.9 G/DL (6.4-8.2); eGFR > 90 ML/MIN
--- NOTE | 2019-06-27 18:31 | NUR ---
PT being transferred from ED02 to OF26 while a safe dc is worked out in the am. TEE Vaca accepted report for pt. FC drained, pt transferred by PCT Dann via WC.
--- NOTE | 2019-06-27 18:52 | NUR ---
pt remains in room 2, main ed, as Pt wth low BP. See note above. Dr. Choudhury ordering labs and fluids. Addendum: 06/27/19 at 1905 by TYRELL [id number], no i fuids ordered, only labs.
--- NOTE | 2019-06-27 19:05 | NUR ---
pt reports generalized pain "all over". States he is weak. A&Ox2, unsure of date and which hospital he is at. States he has been homeless "a long time" states he has a sister in the area and he can visit her "for lisa 2 hrs", but cannot stay with her. He states she has "alot of mental health problems" . Current BP 100/69. Pt was given norco 1 hr ago.
[2019-06-27 19:36] LABS: BURR CELLS 1+; PLATELET ESTIMATE DECREASED; POIKILOCYTOSIS 1+
[2019-06-27 19:37] LABS: ANISOCYTOSIS 1+
[2019-06-27 19:46] LABS: CLARITY,URINE SLIGHTLY CLOUDY (Clear); COLOR,URINE YELLOW (Yellow); GLUCOSE, URINE NEGATIVE (Neg); KETONES,URINE NEGATIVE (Neg); LEUKOCYTE ESTERASE ,URINE SMALL (Neg); NITRITES, URINE NEGATIVE (Neg); OCCULT BLOOD,URINE LARGE (Neg); PROTEIN,URINE NEGATIVE (Neg); UROBILINOGEN,URINE 0.2 E.U/dL (0.2-1.0)
[2019-06-27 19:58] LABS: UA COLLECTION TYPE FOLEY CATH
[2019-06-27 20:01] LABS: BACTERIA,URINE NONE SEEN /HPF (Neg); RBC,URINE TNTC /HPF (0-2); RENAL CELLS, URINE MODERATE /HPF; SQUAMOUS EPITHELIAL CELL,UR NONE SEEN /LPF (FEW); TRANSITIONAL EPI CELLS,URINE FEW /HPF
[2019-06-27 20:02] LABS: CAL OXALATE CRYSTALS 2+ /HPF (NEGATIVE); WBC CLUMPS,URINE MODERATE /HPF (NEGATIVE)
--- NOTE | 2019-06-27 22:00 | NUR ---
Pt sleeping at this time. Pt ate 100% dinner tray, drank 350cc. Alert oriented cooperative with care. F/C draining clr eliana urine.
--- NOTE | 2019-06-28 01:10 | NUR ---
Patient is sleeping on his left side. A james catheter is in place pre-hospital.
--- NOTE | 2019-06-28 02:30 | NUR ---
Patient is sleeping supine position in bed.
--- NOTE | 2019-06-28 03:40 | NUR ---
Patient is sleeping partially on his left side.
--- NOTE | 2019-06-28 04:30 | NUR ---
Patient is sleeping quietly.
--- NOTE | 2019-06-28 05:53 | NUR ---
Patient is sleeping quietly.
--- NOTE | 2019-06-28 06:45 | NUR ---
Patient is resting in bed peacefully in the semi fowlers position. F/C with clear, eliana colored urine. He is pleasant and cooperative. He answers questions appropriately. He requests some tea and this is accomodated.
--- NOTE | 2019-06-28 08:30 | NUR ---
Patient is alert and oriented x2, to person and place. Spoke to Mimi in case management who states she is waiting to hear back from patient's sister. Patient is resting in bed peacefully at this time. He ate his breakfast. Will continue to monitor.
--- NOTE | 2019-06-28 09:40 | NUR ---
Patient is laying in bed in the semi collins's position with the blanket pulled over his head. Patient states "I'm fine".
--- NOTE | 2019-06-28 10:02 | NUR ---
Mimi from Case Management is here to speak to the patient. She is at bedside. No distress observed.
--- NOTE | 2019-06-28 10:22 | NUR ---
Spoke to Mimi from case management who states she will be trying to find contact information for patient's daughter in the [place] area.
--- NOTE | 2019-06-28 11:50 | NUR ---
Patient is resting in bed with his knees elevated. F/C still with draining orange colored urine. Patient denies needs at this time.
[2019-06-28] MEDS ORDERED: CefTRIAXone/D5W-Rocephin 1gm 50 ML IV ONE (12:35)
--- NOTE | 2019-06-28 12:35 | NUR ---
Patient is A and O x 2 which per report is different from baseline of A and O x 4. Patient also has gross hematuria and reports body aches. Spoke to Dr. Garcia who states he may admit him due to metabolic encephalopathy and UTI.
[2019-06-28] MEDS ORDERED: SPIR100T5 PO (12:47)
[2019-06-28] MEDS ORDERED: FURO-150 PO (12:47)
[2019-06-28] MEDS ORDERED: LACT10SO PO (12:47)
[2019-06-28] MEDS ORDERED: HYDR-4383 PO (12:47)
[2019-06-28] MEDS ORDERED: FLO0.4C PO (12:47)
--- NOTE | 2019-06-28 13:28 | NUR ---
Dr. Raymundo assessed patient and states he is at his baseline and does not see criteria that constitutes admit to the hospital at this time.
[2019-06-28] MEDS ORDERED: HYDROcodone/acetaminophen 5mg/325mg tablet PO PRN (15:50)
--- NOTE | 2019-06-28 16:23 | NUR ---
Mimi states that she is still working on discharge plan. Waiting ti hear back from whole person care and sister.
--- NOTE | 2019-06-28 17:41 | NUR ---
Patient is incontinent of bowel. Evangelina care and cath care provided to patient. Patient is a 2 person assist for transferring and repostioning and a 1 person assist for ambulation with the assist of a walker. Scrotum remains swollen and abdomen is distended, round, hard, tender and tight. He has 300ml of orange urine. Patient has swelling in his feet and ankles bilaterally. He is tender when touched. Patient is now in a clean gown and resting in bed at this time.
--- NOTE | 2019-06-28 18:14 | NUR ---
Call to Dr. Raymundo and he said that this pt. per casemanagement does not qualify for admiting and he can't. Admin needs to be brought in and assist with what to do.
--- NOTE | 2019-06-28 18:33 | NUR ---
The patient is attempting to eat his dinner.
[2019-06-28] MEDS: lactulose 20gm/30ml cup PO SCH (20:36)
[2019-06-28] MEDS: furosemide 20MG tablet PO SCH (20:37)
--- NOTE | 2019-06-28 20:57 | NUR ---
The patient is resting on his bed. Irritable when approached but cooperative. Complained of generalized pain and was given pain medication. He was unable to state where he was other than in a hospital. He was aware of the year but could not state the date.
[2019-06-28] MEDS ORDERED: tamsulosin 0.4mg capsule PO SCH (21:00)
--- NOTE | 2019-06-28 22:18 | NUR ---
The patient is resting on his bed.
--- NOTE | 2019-06-29 03:26 | NUR ---
The patient has been resting on his bed. He was assisted with sonu care after having a small amount of liquid stool.
--- NOTE | 2019-06-29 05:08 | NUR ---
The patient is resting on his bed.
--- NOTE | 2019-06-29 06:27 | NUR ---
Patient is sleeping in bed. Respirations are even and nonlabored.
[2019-06-29] MEDS ORDERED: spironolactone 25 MG tablet PO SCH (08:30)
[2019-06-29] MEDS: furosemide 20MG tablet PO SCH (08:30)
[2019-06-29] MEDS: lactulose 20gm/30ml cup PO SCH (08:30)
--- NOTE | 2019-06-29 09:11 | NUR ---
Patient took morning medications without incident.
--- NOTE | 2019-06-29 09:45 | NUR ---
Mimi from social media marketing analyst here to see patient regarding discharge plans.
--- NOTE | 2019-06-29 10:17 | NUR ---
Breaking primary RN, awaiting pt discarge
[2019-06-29 11:30] VITALS: BP 89/49
== END 2019-06-29 11:33 | disposition home or self-care (01) ==
LOC: ER 14:21
DX: M79.18 Myalgia, other site (principal); R05 Cough; I25.2 Old myocardial infarction; M19.90 Unspecified osteoarthritis, unspecified site; G89.29 Other chronic pain; F10.10 Alcohol abuse, uncomplicated; Z59.0 Homelessness; Z98.890 Other specified postprocedural states; Z79.899 Other long term (current) drug therapy
CPT/HCPCS: 36415; 80053; 81001; 84145; 85025; 99285

== ENCOUNTER 2019-06-29 15:07 | Emergency (ER) | payer MEDICAID ==
[~2019-06-29] VITALS: Ht 167.6 cm; Wt 80.0 kg
[~2019-06-29 15:07] MED LIST changes: +FLO0.4C PO; +FURO-150 PO; -FURO20TA4 PO; -HYDR-3965 PO; +HYDR-4383 PO; +LACT10SO PO; -LACT10SO32 PO; +SPIR100T5 PO; -SPIR50TA5 PO; -tamsulosin capsule PO
[2019-06-29] MEDS ORDERED: ibuprofen tablet 400 MG TABLET PO ONE (15:30)
[2019-06-29] MEDS ORDERED: normal saline 1000ml 1,000 ML IV ONE (15:30)
[2019-06-29 17:32] VITALS: BP 92/62
== END 2019-06-29 17:42 | disposition home or self-care (01) ==
LOC: ER 15:07
DX: E86.0 Dehydration (principal); R50.9 Fever, unspecified; G89.29 Other chronic pain; I25.2 Old myocardial infarction; F10.10 Alcohol abuse, uncomplicated; Z59.0 Homelessness; Z79.899 Other long term (current) drug therapy
CPT/HCPCS: 96360; 99283; J7030

== ENCOUNTER 2019-06-30 09:02 | Emergency (ER) | payer MEDICAID ==
[~2019-06-30] VITALS: Ht 172.7 cm; Wt 74.5 kg
[2019-06-30 09:03] VITALS: BP 113/68
== END 2019-06-30 09:39 | disposition home or self-care (01) ==
LOC: ER 09:03
DX: M54.9 Dorsalgia, unspecified (principal); M79.18 Myalgia, other site; I25.2 Old myocardial infarction; M19.90 Unspecified osteoarthritis, unspecified site; G89.29 Other chronic pain; F10.10 Alcohol abuse, uncomplicated; Z98.890 Other specified postprocedural states; Z59.0 Homelessness; Z79.899 Other long term (current) drug therapy
CPT/HCPCS: 99284

== ENCOUNTER 2019-06-30 20:27 | Emergency (ER) | payer MEDICAID ==
[~2019-06-30] VITALS: Ht 172.7 cm; Wt 74.1 kg
[2019-06-30 20:29] VITALS: BP 114/60
[2019-06-30] MEDS ORDERED: acetaminophen 325mg tablet PO ONE (20:45)
--- NOTE | 2019-06-30 20:45 | NUR ---
ORTIZ FOX AT BEDSIDE. PT IS MUMBLING AND DIFFICULT TO UNDERSTAND AT TIMES AND BECOMES IRRITATED WITH REQUEST TO REPEAT HIMSELF. A&OX3, BUT IS POOR HISTORIAN. ASKED WHY HE HAS THE AVILES CATHETER, "BECAUSE THE DOCTOR SAYS I NEED IT". PER ORTIZ, PLACED RECENTLY D/T PT NEEDING A TURP AND UNABLE TO HAVE ELECTIVE SURGERY AT THIS TIME. PROVIDER TO ORDERCT HEAD AND NECK.
--- NOTE | 2019-06-30 22:00 | NUR ---
[facility] called, hospital pay. pt up with no assist and using walker with slow steady gait.given tylenol for 8 out of 10 pain to his head.
== END 2019-06-30 22:08 | disposition home or self-care (01) ==
LOC: ER 20:27
DX: R51 Headache (principal); S09.90XA Unspecified injury of head, initial encounter; I25.2 Old myocardial infarction; M19.90 Unspecified osteoarthritis, unspecified site; G89.29 Other chronic pain; F10.10 Alcohol abuse, uncomplicated; Z98.890 Other specified postprocedural states; Z79.899 Other long term (current) drug therapy; W18.39XA Other fall on same level, initial encounter; Y93.89 Activity, other specified; Y92.89 Other specified places as the place of occurrence of the external cause; Y99.8 Other external cause status
CPT/HCPCS: 70450; 72125; 99285

== ENCOUNTER 2019-07-01 00:11 | Emergency (ER) | payer MEDICAID ==
[~2019-07-01] VITALS: Ht 167.6 cm; Wt 68.2 kg
--- NOTE | 2019-07-01 00:27 | NUR ---
Patient was seen and treated by Dr Pearson. He was discharged by Dr. Pearson.
[2019-07-01 00:29] VITALS: BP 100/69
== END 2019-07-01 00:37 | disposition home or self-care (01) ==
LOC: ER 00:12
DX: R53.1 Weakness (principal); G89.29 Other chronic pain; M19.90 Unspecified osteoarthritis, unspecified site; F10.10 Alcohol abuse, uncomplicated; I25.2 Old myocardial infarction; Z59.0 Homelessness
CPT/HCPCS: 99283